=== PATIENT | female | born 1980 | race African-American/Black ===

== ENCOUNTER 2020-10-22 10:45 | Outpatient (REF) | payer OTHER, SELFPAY | END 2020-10-22 10:46 | disposition home or self-care (01) | LOC: HO.LNP 10:45 | PROVIDERS: Visit Provider Hospitalist | DX: R82.71 Bacteriuria (principal) | CPT/HCPCS: 87086 ==

== ENCOUNTER 2020-10-29 14:03 | Outpatient (REF) | payer OTHER, SELFPAY | END 2020-10-29 14:04 | disposition home or self-care (01) | LOC: HO.LNP 14:03 | PROVIDERS: Visit Provider Hospitalist | DX: Z00.00 Encounter for general adult medical examination without abnormal findings (principal); R82.71 Bacteriuria; Z13.220 Encounter for screening for lipoid disorders; Z13.29 Encounter for screening for other suspected endocrine disorder; Z23 Encounter for immunization | CPT/HCPCS: 87086 ==

== ENCOUNTER 2021-12-17 08:35 | Outpatient (REF) | payer OTHER, SELFPAY ==
[2021-12-17 10:49] LABS: Hematocrit 37.1 % (37.0-47.0); Hemoglobin 11.7 g/dl (12.0-16.0); Mean Corpuscular HGB Conc 31.5 g/dl (31.0-35.0); Mean Corpuscular Hemoglobin 25.4 pg (27.0-33.0); Mean Corpuscular Volume 80.7 fL (80.0-98.0); Mean Platelet Volume 11.8 fL (9.4-12.3); Platelet Count 217 X10*3/uL (160-400); Red Cell Distribution Width 13.8 % (11.0-16.0); White Blood Count 7.7 X10*3/uL (4.8-10.8)
[2021-12-17 11:06] LABS: Alanine Aminotransferase 15 U/L (0-31); Albumin Level 4.3 g/dL (3.5-5.0); Alkaline Phosphatase 92 U/L (39-117); Anion Gap 13 (12-20); Aspartate Amino Transferase 14 U/L (5-31); Bilirubin Total 0.3 mg/dL (0.0-1.0); Blood Urea Nitrogen 10 mg/dL (9-16); Calcium 9.9 mg/dL (8.4-10.2); Carbon Dioxide 23 mmol/L (22-29); Chloride 107 mmol/L (96-108); Cholesterol 196 mg/dL; Estimated Glomerular Filt Rate > 60; Glucose Fasting 100 mg/dL (60-99); HDL Cholesterol 50 mg/dL; Iron 44 mcg/dL (30-160); LDL Cholesterol Calculated 127 mg/dl; Percent Iron Saturation 12 % (15-50); Potassium 4.2 mmol/L (3.3-5.1); Sodium 139 mmol/L (135-145); Total Iron Binding Capacity 380 mcg/dL (228-428); Triglycerides 95 mg/dL; Unsaturated Iron Binding 336 ug/dL
[2021-12-17 11:27] LABS: TSH reflex Free T4 0.59 uIU/mL (0.32-4.0)
== END 2021-12-17 08:36 | disposition home or self-care (01) ==
LOC: HO.WFDLDS 08:35
PROVIDERS: Visit Provider Hospitalist
DX: Z00.00 Encounter for general adult medical examination without abnormal findings (principal); D64.9 Anemia, unspecified
CPT/HCPCS: 36415; 80053; 80061; 83540; 84443; 85027

== ENCOUNTER 2022-11-15 12:51 | Outpatient (REF) | payer OTHER, SELFPAY ==
[2022-11-15 14:23] LABS: Hematocrit 34.4 % (37.0-47.0); Hemoglobin 10.9 g/dl (12.0-16.0); Mean Corpuscular HGB Conc 31.7 g/dl (31.0-35.0); Mean Corpuscular Hemoglobin 25.2 pg (27.0-33.0); Mean Corpuscular Volume 79.6 fL (80.0-98.0); Mean Platelet Volume 12.5 fL (9.4-12.3); Platelet Count 228 X10*3/uL (160-400); Red Blood Count 4.32 X10*6/uL (4.20-5.50); Red Cell Distribution Width 13.8 % (11.0-16.0); White Blood Count 9.6 X10*3/uL (4.8-10.8)
[2022-11-15 15:02] LABS: Alanine Aminotransferase 16 U/L (0-31); Alkaline Phosphatase 86 U/L (39-117); Anion Gap 10 (12-20); Aspartate Amino Transferase 16 U/L (5-31); Bilirubin Total 0.4 mg/dL (0.0-1.0); Blood Urea Nitrogen 8 mg/dL (9-16); Calcium 9.2 mg/dL (8.4-10.2); Carbon Dioxide 25 mmol/L (22-29); Chloride 107 mmol/L (96-108); Cholesterol 220 mg/dL; Estimated Glomerular Filt Rate > 60; Glucose Fasting 82 mg/dL (60-99); HDL Cholesterol 54 mg/dL; LDL Cholesterol Calculated 156 mg/dl; Potassium 4.1 mmol/L (3.3-5.1); Sodium 138 mmol/L (135-145); TSH reflex Free T4 0.67 uIU/mL (0.32-4.0); Total Protein 6.5 g/dL (6.5-8.0); Triglycerides 54 mg/dL
== END 2022-11-15 12:52 | disposition home or self-care (01) ==
LOC: HO.WFDLDS 12:51
PROVIDERS: Visit Provider Hospitalist
DX: Z00.00 Encounter for general adult medical examination without abnormal findings (principal)
CPT/HCPCS: 36415; 80053; 80061; 84443; 85027

== ENCOUNTER 2022-12-28 09:29 | Outpatient (REF) | payer OTHER, SELFPAY ==
[2022-12-28 10:43] LABS: Hematocrit 31.8 % (37.0-47.0); Mean Corpuscular HGB Conc 31.4 g/dl (31.0-35.0); Mean Corpuscular Hemoglobin 24.9 pg (27.0-33.0); Mean Corpuscular Volume 79.1 fL (80.0-98.0); Mean Platelet Volume 11.4 fL (9.4-12.3); Platelet Count 220 X10*3/uL (160-400); Red Blood Count 4.02 X10*6/uL (4.20-5.50); Red Cell Distribution Width 13.9 % (11.0-16.0); White Blood Count 5.2 X10*3/uL (4.8-10.8)
[2022-12-28 11:42] LABS: Folate 11.2 ng/mL (> or = 4.0); Vitamin B12 705 pg/mL (200-900)
[2023-01-01 19:18] LABS: Vitamin C 0.6 mg/dL (0.3-2.7)
== END 2022-12-28 09:30 | disposition home or self-care (01) ==
LOC: HO.WFDLDS 09:29
PROVIDERS: Visit Provider Hospitalist
DX: D64.9 Anemia, unspecified (principal)
CPT/HCPCS: 36415; 82180; 82607; 82746; 85027

== ENCOUNTER 2023-01-13 11:07 | Outpatient (REF) | payer OTHER, SELFPAY ==
[2023-01-13 14:14] LABS: Hematocrit 35.7 % (37.0-47.0); Hemoglobin 11.2 g/dl (12.0-16.0); Mean Corpuscular HGB Conc 31.4 g/dl (31.0-35.0); Mean Corpuscular Volume 79.7 fL (80.0-98.0); Mean Platelet Volume 12.4 fL (9.4-12.3); Platelet Count 260 X10*3/uL (160-400); Red Blood Count 4.48 X10*6/uL (4.20-5.50); Red Cell Distribution Width 14.3 % (11.0-16.0); White Blood Count 9.7 X10*3/uL (4.8-10.8)
== END 2023-01-13 11:08 | disposition home or self-care (01) ==
LOC: HO.WFDLDS 11:07
PROVIDERS: Visit Provider Hospitalist
DX: D64.9 Anemia, unspecified (principal)
CPT/HCPCS: 36415; 85027

== ENCOUNTER 2023-10-21 10:02 | Outpatient (AMB) | payer OTHER, SELFPAY ==
--- NOTE | 2023-10-21 10:06 | MHC.PC.OV ---
Vital Signs 10/21/23 10:11 Height 5 ft 6 in Weight 220 lb 8 oz BMI 35.6 BP 134/78 Blood Pressure Location Rt brachial Position Sitting Pulse 79 Pulse Source Pulse Oximeter Pulse Oximetry (%) 99 Oxygen Delivery Method Room Air Intake Visit Reasons: transfer care from [facility] Note: Patient is here today transfer of care SV. Externship forms needs to be filled out. Behavioral Technician Required: No Chief Revenue Officer: Not Required per policy Accompanied by: Self / Same As Patient Allergies No Known Allergies Allergy (Verified 10/21/23 10:38) Tobacco use date assessed: 10/21/23 Dental Screening Dental Screen Date: 10/21/23 Did you have a dental visit in the last 12 months?: No Did you have a dental problem in the last 6 months where you did not have access to dental care?: No Was dental information given to patient?: No HPI HPI Comments History of Present Illness Details 42 y/o F with Iron Def anemia Health Maintenance: Immunizations: Needs titers drawn for work, ordered today. Due for Tdap and Flu. Will get done today in office Mammogram - reports done in the last year at [facility] - record requested Pap: 2021 reported as normal unsure where. 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 Fillings fell out. > Needs to find one but cannot. Please provide a list via NN referral placed today. Diet normal Sleep/Mood good Was taking Iron supplement for Iron def anemia; admits has not taken in a while. Record review shows general noncompliance. Offers no c/o overt bleeding or sx of anemia. [facility] Medical History Anemia Surgical History No pertinent past surgical history Family History Maternal Aunt Breast cancer Mother High blood pressure Prediabetes Social History Household Members Other:: son Housing: Apartment Alcohol intake: never Patient Tobacco Use Status: Never used Tobacco e-Cigarette/Vaping Use: Never Used Second Hand Smoke Exposure: No service: No Current occupational status: employed and student Cognitive needs: No Hearing needs: No Vision needs: No Questionnaire PHQ-9 Over the last 2 weeks, how often have you been bothered by any of the following problems? 1. Little interest or pleasure in doing things: not at all 2. Feeling down, depressed, or hopeless: not at all 3. Trouble falling or staying asleep, or sleeping too much: not at all 4. Feeling tired or having little energy: not at all 5. Poor appetite or overeating: not at all 6. Feeling bad about yourself - or that you are a failure or have let yourself or your family down: not at all 7. Trouble concentrating on things, such as reading the newspaper or watching television: not at all 8. Moving or speaking so slowly that other people could have noticed. Or the opposite - being so fidgety or restless that you have been moving around a lot more than usual: not at all 9. Thoughts that you would be better off or of hurting yourself in some way: not at all Total score: 0 Depression Screening Interpretation: Negative Depression Screening Done: Yes 88319 - PHQ-9 Billing: Yes Source: Developed by Drs. Nathan Luke, Sonal Hernandez, Iam Hernandez and colleagues, with an educational leda from [employer]. Thrive Questionnaire Date Thrive assessed: 10/21/23 I am a: Patient What is your living situation today?: I have a steady place to live Within the past 12 months, did the food you bought not last and you didn't have the money to get more?: Never true Within the past 12 months, did you worry whether your food would run out before you got money to buy more?: Never true Do you have trouble paying for medicines?: No Do you have trouble getting transportation to medical appointments?: No Do you have trouble paying your heating and electricity bill?: No Do you have trouble taking care of your child, family member or friend?: No Do you have trouble with day-to-day activities such as bathing, preparing meals, shopping, managing finances, etc.?: No Are you currently unemployed and looking for a job?: No Are you interested in more education?: No Please select the resources that you would like help with: None Currently or been in a relationship where the following occur: no concerns reported THRIVE Score: 0 AUDIT C Alcohol Use Questionnaire (AUDIT-C) 1. How often do you have a drink containing alcohol?: Never Total Score: 0 Score Reviewed/Action Taken: No WAYLON-7 AMB Questionnaire WAYLON-7 Date WAYLON - 7 assessed: 10/21/23 Feeling nervous, anxious, or on edge: 0 = Not at all Not being able to stop or control worryin = Not at all Worrying too much about different things: 0 = Not at all Trouble relaxin = Not at all Being so restless that it is hard to sit still: 0 = Not at all Becoming easily annoyed or irritable: 0 = Not at all Feeling afraid as if something awful might happen: 0 = Not at all Total WAYLON-7 score (0-4 normal; 5-9 mild; 10-14 moderate; 15-21 severe): 0 Source: Developed by Drs. Nathan Luke, Sonal Hernandez, Iam Hernandez and colleagues, with an educational leda from [employer]. WAYLON-7 Assessment Billing WAYLON-7 Assessment Tool: WAYLON-7 Assessment 95800 Review of Systems Const Details: Constitutional: [Denies fever. Skin: Denies rash. Eye: Denies eye pain. ENMT: Denies sore throat and nasal congestion. Respiratory: Denies shortness of breath and cough. Gastrointestinal: Denies nausea, vomiting or abdominal pain. Cardiovascular: Denies chest pain and syncope. Genitourinary: Denies dysuria. Musculoskeletal: Denies back pain and extremity pain. Neurologic: Denies headaches, confusion, and weakness. Psychiatric: Denies suicidal thoughts and substance abuse. Allergy/ Immunologic: Denies impaired immunity. Physical exam (Primary Care) Vital Signs: Last Vital Signs Pulse 79 10/21/23 10:11 BP 134/78 10/21/23 10:11 Pulse Ox 99 10/21/23 10:11 Oxygen Delivery Method Room Air 10/21/23 10:11 BMI result Body Mass Index 35.6 BMI Assessment/Plan discussion: High Tobacco/Smoking Status: Tobacco use Status Tobacco use date assessed 10/21/23 10/21/23 10:17 Patient Tobacco Use Status Never used Tobacco 10/21/23 10:17 e-Cigarette/Vaping Use Never Used 10/21/23 10:17 PHQ-9: PHQ-9 Score PHQ-9: Total score 0 10/21/23 11:39 Depression Screening Interpretation: Negative Thrive Assessment: Date of Thrive Assessment Date Thrive assessed 10/21/23 10/21/23 10:17 Currently or been in a relationship where the following occur: no concerns reported Const Other: General: Well developed, well nourished, in no acute distress. Appears stated age. Head: Normocephalic, atraumatic. Eyes: Pupils are equal, round and reactive to light and accommodation. Conjunctivae are clear. Vision grossly normal. Ears: TMs clear AU, EACS WNL Nose: Patent, without discharge. Mouth: There are no ulcers or lesions noted. No inflammation, no post nasal drip, no plaques nor exudates. Neck: Supple, no adenopathy or thyromegaly. Lungs: Clear to auscultation bilaterally. No rales, rhonchi or wheeze noted. Good air flow in all valente. Heart: Regular rate and rhythm. No murmurs, click, rubs or gallops are noted. Abdomen: Bowel sounds present in all quadrants. The abdomen is soft, nontender, with no masses or organomegaly noted. No hernias are noted. Musculoskeletal: Joints are nontender, without swelling, redness, or effusions. Range of motion is observed to be normal. Pulses: Peripheral pulses are equal and palpable bilaterally. Extremities: No clubbing, cyanosis is noted. Trace nonpitting edema bilat. Neurologic: Gait and station normal. Cranial Nerves 2-12 intact. Motor strength grossly symmetrical and intact. No sensory loss. Balance normal. Skin: No rashes, ulcers, or lesions noted. Turgor is good. Skin color is good. Hair and nails are without abnormalities. Psych: Normal eye contact, affect and mood appropriate, and normal interactions. Patient is alert and appropriate to context. Office Procedures Flu Questionnaire Does the patient have a severe egg allergy?: No Does the patient have severe life threatening allergies?: No Does the patient have a fever or illness today?: No Has the patient ever had Guillain-Delray Syndrome?: No Has the patient ever had any past reaction to a flu shot?: No Immunizations flu vacc [id number] 6mos up(PF) 60 mcg(15 mcgx4)/0.5 mL IM syringe Performing Provider: KRISSY Barth Performing Location: [facility] Administered by: Krista Yates CMA on 10/21/23 11:43 Dose Route Admin Location Dispensed Lot Number Expiration Date ND Supervisor [employer] 0.5 mL IM Right Deltoid 0.5 mL [id number] 03/18/24 [id number] [email or web address] VIS Given Date VIS Provided VIS Publication Date 10/21/23 Single Vaccine 21 Eligibility Eligibility Date Funding Source Not VFC Eligible 10/21/23 Private Boostrix Tdap 2.5 Lf unit-8 mcg-5 Lf/0.5 mL intramuscular syringe Performing Provider: KRISSY Barth Performing Location: [facility] Administered by: Krista Yates CMA on 10/21/23 11:47 Dose Route Admin Location Dispensed Lot Number Expiration Date ND Supervisor [employer] 0.5 mL IM Left Deltoid 0.5 mL [id number] 08/24/25 [id number] [employer] VIS Given Date VIS Provided VIS Publication Date 10/21/23 Single Vaccine 21 Eligibility Eligibility Date Funding Source Not VFC Eligible 10/21/23 Private Assessment and Plan Assessment & Plan (1) Normal physical exam: Code(s): Z00.00 - Encounter for general adult medical examination without abnormal findings (2) Anemia: Comment: Labs ordered today. Was taking iron supplement although not consistently. Full anemia workup has never taken place. Be that as it may review of records shows that her anemia is mild and was controlled well with sporadic use of p.o. iron. We will follow up with patient once labs are back to determine if she needs to continue p.o. iron supplement or not. Of note the labs are being done. Of time without iron supplementation. Code(s): D64.9 - Anemia, unspecified Qualifiers: Anemia type: iron deficiency Iron deficiency anemia type: unspecified iron deficiency Qualified Code(s): D50.9 - Iron deficiency anemia, unspecified (3) Laboratory exam ordered as part of routine general medical examination: Code(s): Z00.00 - Encounter for general adult medical examination without abnormal findings (4) Pre-employment drug testing: Code(s): Z02.1 - Encounter for pre-employment examination Plan: Paperwork required for pre-employment. Given to me today. We will complete once all the lab tests are back. I will phone patient is ready for pickup. (5) Immunity status testing: Code(s): Z01.84 - Encounter for antibody response examination (6) Edema: Code(s): R60.9 - Edema, unspecified Qualifiers: Edema type: unspecified Qualified Code(s): R60.9 - Edema, unspecified Orders: Orders MMR IgG Measles Mumps Rubella Today D64.9 - Anemia, unspecified, Z00.00 - Encounter for general adult medical examination without abnormal findings, Z01.84 - Encounter for antibody response examination, Z02.1 - Encounter for pre-employment examination Hepatitis B Profile Today D64.9 - Anemia, unspecified, Z00.00 - Encounter for general adult medical examination without abnormal findings, Z01.84 - Encounter for antibody response examination, Z02.1 - Encounter for pre-employment examination Varicella IgG Antibody Today D64.9 - Anemia, unspecified, Z00.00 - Encounter for general adult medical examination without abnormal findings, Z01.84 - Encounter for antibody response examination, Z02.1 - Encounter for pre-employment examination AMB 12 Panel Urine Drug Screen Today D64.9 - Anemia, unspecified, Z00.00 - Encounter for general adult medical examination without abnormal findings, Z01.84 - Encounter for antibody response examination, Z02.1 - Encounter for pre-employment examination, Z51.81 - Encounter for therapeutic drug level monitoring Comprehensive [place]. Panel Fast Today D64.9 - Anemia, unspecified, Z00.00 - Encounter for general adult medical examination without abnormal findings, Z01.84 - Encounter for antibody response examination, Z02.1 - Encounter for pre-employment examination Lipid Panel Today D64.9 - Anemia, unspecified, Z00.00 - Encounter for general adult medical examination without abnormal findings, Z01.84 - Encounter for antibody response examination, Z02.1 - Encounter for pre-employment examination Vitamin D 1,25 dihydroxy Today D64.9 - Anemia, unspecified, Z00.00 - Encounter for general adult medical examination without abnormal findings, Z01.84 - Encounter for antibody response examination, Z02.1 - Encounter for pre-employment examination Complete Blood Count no Diff Today D64.9 - Anemia, unspecified, Z00.00 - Encounter for general adult medical examination without abnormal findings, Z01.84 - Encounter for antibody response examination, Z02.1 - Encounter for pre-employment examination T Spot TB Today D64.9 - Anemia, unspecified, Z00.00 - Encounter for general adult medical examination without abnormal findings, Z01.84 - Encounter for antibody response examination, Z02.1 - Encounter for pre-employment examination TSH reflex Free T4 Today D64.9 - Anemia, unspecified, Z00.00 - Encounter for general adult medical examination without abnormal findings, Z01.84 - Encounter for antibody response examination, Z02.1 - Encounter for pre-employment examination IRON PROFILE Today D64.9 - Anemia, unspecified, Z00.00 - Encounter for general adult medical examination without abnormal findings, Z01.84 - Encounter for antibody response examination, Z02.1 - Encounter for pre-employment examination US arterial duplex LE BI Today R60.9 - Edema, unspecified TDaP Immunization Today Z23 - Encounter for immunization Influenza [id number] Immunization Today Z23 - Encounter for immunization Referrals Nurse Navigator Referral Z00.00 - Encounter for general adult medical examination without abnormal findings Coding Level of Care Code Est Pt Prev Care 40-64y(34937) Diagnoses Normal physical exam Z00.00 Iron deficiency anemia, unspecified iron deficiency anemia type D50.9 Anemia type: iron deficiency Iron deficiency anemia type: unspecified iron deficiency Laboratory exam ordered as part of routine general medical examination Z00.00 Pre-employment drug testing Z02.1 Immunity status testing Z01.84 Edema, unspecified type R60.9 Edema type: unspecified Additional Codes WAYLON-7 Assessment Billing - WAYLON-7 Assessment Tool: WAYLON-7 Assessment 14575 ([id number])
[2023-10-21 10:11] VITALS: BP 134/78; PULSE 79; O2SAT 99; BMI 35.6
== END 2023-10-21 11:16 | disposition home or self-care (01) ==
PROVIDERS: Visit Provider Nurse Practitioner Family
DX: D50.9 Iron deficiency anemia, unspecified (principal); R60.9 Edema, unspecified; Z23 Encounter for immunization
CPT/HCPCS: 90471; 90472; 90686; 90715; 99214

== ENCOUNTER 2023-10-21 11:22 | Outpatient (REF) | payer OTHER, SELFPAY ==
[2023-10-21 14:05] LABS: Hemoglobin 9.9 g/dl (12.0-16.0); Mean Corpuscular HGB Conc 30.9 g/dl (31.0-35.0); Mean Corpuscular Hemoglobin 22.4 pg (27.0-33.0); Mean Corpuscular Volume 72.6 fL (80.0-98.0); Mean Platelet Volume 11.7 fL (9.4-12.3); Platelet Count 239 X10*3/uL (160-400); Red Blood Count 4.41 X10*6/uL (4.20-5.50); Red Cell Distribution Width 15.2 % (11.0-16.0); White Blood Count 9.6 X10*3/uL (4.8-10.8)
[2023-10-21 14:44] LABS: Amphetamine Screen Urine Not Detected (Not Detect); Barbiturates, Urine Not Detected (Not Detect); Benzodiazepines Screen Urine Not Detected (Not Detect); Cannabinoid Screen Urine Not Detected (Not Detect); Cocaine Screen Urine Not Detected (Not Detect); Fentanyl, urine Not Detected (Not Detect); Opiate Screen Urine Not Detected (Not Detect); Phencyclidine Screen Urine Not Detected (Not Detect)
[2023-10-21 15:11] LABS: Alanine Aminotransferase 16 U/L (0-31); Albumin Level 4.2 g/dL (3.5-5.0); Alkaline Phosphatase 98 U/L (39-117); Anion Gap 12 (12-20); Aspartate Amino Transferase 16 U/L (5-31); Bilirubin Total 0.3 mg/dL (0.0-1.0); Blood Urea Nitrogen 9 mg/dL (9-16); Calcium 9.5 mg/dL (8.4-10.2); Carbon Dioxide 24 mmol/L (22-29); Chloride 107 mmol/L (96-108); Cholesterol 211 mg/dL (<200); Estimated Glomerular Filt Rate > 60; Glucose Fasting 90 mg/dL (60-99); HDL Cholesterol 59 mg/dL (>40); Iron 24 mcg/dL (30-160); LDL Cholesterol Calculated 141 mg/dL (<100); Percent Iron Saturation 6 % (15-50); Potassium 3.8 mmol/L (3.3-5.1); Sodium 139 mmol/L (135-145); TSH reflex Free T4 1.11 uIU/mL (0.32-4.0); Total Iron Binding Capacity 374 mcg/dL (228-428); Total Protein 7.4 g/dL (6.5-8.0); Triglycerides 59 mg/dL (<150); Unsaturated Iron Binding 350 ug/dL
[2023-10-22 04:18] LABS: HBS Num1 0.48 mIU/mL (0-7.99); HBc Num1 0.07 S/CO (0.00-0.79); HBsAGNum1 0.39 S/CO (0.00-0.99); Hepatitis B Core Antibody Nonreactive (Nonreactive); Hepatitis B Surface Antigen Negative (Negative); ~Hepatitis B Surface Antibody NONREACTIVE (Nonreactive)
[2023-10-24 15:03] LABS: TS Negative Control Passed; TS Panel A 0; TS Panel B 1; TS Positive Control Passed; TSpotTB Negative (Negative)
[2023-10-25 02:09] LABS: Rubella IgG Antibody 4.26 Index
[2023-10-25 14:48] LABS: VITAMIN D (1,25 OH) D3 49 pg/mL; Vit D (1,25-Dihydroxy) Total 49 pg/mL (18-72); Vitamin D (1,25 OH) D2 <8 pg/mL
== END 2023-10-21 11:23 | disposition home or self-care (01) ==
LOC: HO.WFDLDS 11:22
PROVIDERS: Visit Provider Nurse Practitioner Family
DX: Z02.1 Encounter for pre-employment examination (principal); Z13.21 Encounter for screening for nutritional disorder; Z11.1 Encounter for screening for respiratory tuberculosis; D64.9 Anemia, unspecified; E78.5 Hyperlipidemia, unspecified
CPT/HCPCS: 36415; 80053; 80061; 80307; 82652; 83540; 84443; 85027; 86481; 86704; 86706; 86735; 86762; 86765; 86787; 87340

== ENCOUNTER 2023-11-10 08:21 | Outpatient (REF) | payer OTHER, SELFPAY ==
--- NOTE | ~2023-11-10 | US_ITS ---
EXAMINATION: US VENOUS ULTRASOUND WITH DOPPLER LOWER EXTREMITY, BILATERAL CLINICAL INFORMATION: Edema COMPARISON: None available. TECHNIQUE: Ultrasound of the deep veins is performed from the hip to the calf with compression sonography and color and pulse Doppler assessment. Spectral analysis with color-flow imaging is performed. FINDINGS: RIGHT: There is normal venous compression and respiratory variation and augmented flow. The visualized common femoral vein, superficial femoral vein, profunda femoral vein, popliteal vein, and the trifurcation region shows no evidence of deep venous thrombosis. There is no significant popliteal fossa cyst. LEFT: There is normal venous compression and respiratory variation and augmented flow. The visualized common femoral vein, superficial femoral vein, profunda femoral vein, popliteal vein, and the trifurcation region shows no evidence of deep venous thrombosis. There is no significant popliteal fossa cyst. If the patient's symptoms persist, followup ultrasound in 5 days 7 days might be of value to exclude proximal propagation from a non-visualized calf vein. US/US venous duplex LE BI IMPRESSION: No DVT demonstrated in the bilateral lower extremity.
== END 2023-11-10 08:22 | disposition home or self-care (01) ==
LOC: HO.US 08:21
PROVIDERS: PCP Nurse Practitioner Family; Visit Provider Nurse Practitioner Family
DX: R60.0 Localized edema (principal)
CPT/HCPCS: 93970

== ENCOUNTER 2024-04-23 15:28 | Outpatient (AMB) | payer OTHER, SELFPAY ==
--- NOTE | 2024-04-23 15:32 | MHC.PC.OV ---
Vital Signs 04/23/24 15:34 Height 5 ft 6 in Weight 212 lb 8 oz BMI 34.3 BP 128/68 Blood Pressure Location Rt brachial Position Sitting Respiration 16 Pulse 74 Pulse Source Pulse Oximeter Pulse Oximetry (%) 98 Oxygen Delivery Method Room Air Intake Visit Reasons: Follow up Anemia and Hyperlipidemia Intake Note: Follow up. Was unable to get labs done. Newspaper Clipper Required: No Is last menstrual period known: Yes Last menstrual period: 04/21/24 Allergies atorvastatin Allergy (Mild, Verified 04/23/24 15:45) Rash Medication List - Last Reconciled 04/23/24 by Emiliana Bettencourt, PAPER TUBE CUTTER- atorvastatin 20 mg PO QPM ferrous fumarate 325 mg PO DAILY Tobacco use date assessed: 10/21/23 Dental Screening Dental Screen Date: 10/21/23 HPI HPI Comments History of Present Illness Details 43 y/o F with Iron Def anemia, obesity, hyperlipidemia Here today for routine follow up of her chronic conditions. Since last office visit she is taking her iron twice per day as directed without any GI side effects. She denies any overt bleeding, shortness of breath or chest pain. I started her on atorvastatin 20 mg at the last office visit due to her lipid profile, after taking for 1 month she developed an itchy rash on her neck. She did stop taking for some time and then restarted on it, the rash got worse. In regards to the swelling in her lower extremities, it remains the same, worse on the right side, worse on the end of the day. Improves in the mornin and with elevation. Exam Awake alert oriented, no acute distress Mild conjunctival pallor bilat Mucous membranes moist Regular rate and rhythm Lung sounds clear to auscultation bilat Trace nonpitting edema bilateral lower extremities, right greater than left Dermatitis anterior neck, worse on the right side, without secondary signs of infection Pleasant and cooperative Plan: Due for repeat labs which she will get done today, I have changed the fasting lipid profile to a direct LDL as she is nonfasting today. I have discontinue the atorvastatin and added this to her allergy profile Prednisone to help the drug-induced rash. Advised to liberally hydrate the skin but avoid topical steroids. If the rash does not improve or gets worse advised to contact me so that I can put a referral in to dermatology for further evaluation and treatment. If a cholesterol-lowering agent is needed, we will start Zetia. Continue iron supplements, refill has been sent to local pharmacy. Return to office in about 4 months with repeat labs done 1 week before, sooner as needed. Improving CBC and Iron profile; remains anemic. LDL pending. This note is constructed using voice recognition software. While every effort has been made to ensure accuracy in hog buyer, still errors may have been included Sometimes, these errors may affect the content or meaning of the given sentence . PFSH Medical History Anemia Surgical History No pertinent past surgical history Family History Maternal Aunt Breast cancer Mother High blood pressure Prediabetes Social History Household Members Other:: son Housing: Apartment Alcohol intake: never Patient Tobacco Use Status: Never used Tobacco e-Cigarette/Vaping Use: Never Used Second Hand Smoke Exposure: No service: No Current occupational status: employed and student Cognitive needs: No Hearing needs: No Vision needs: No Female Reproductive History Menstrual Date of last menstrual period: 04/21/24 Questionnaire Thrive Questionnaire Date Thrive assessed: 10/21/23 I am a: Patient What is your living situation today?: I have a steady place to live Within the past 12 months, did the food you bought not last and you didn't have the money to get more?: Sometimes True Within the past 12 months, did you worry whether your food would run out before you got money to buy more?: Sometimes True Do you have trouble paying for medicines?: No Do you have trouble getting transportation to medical appointments?: No Do you have trouble paying your heating and electricity bill?: No Do you have trouble taking care of your child, family member or friend?: No Do you have trouble with day-to-day activities such as bathing, preparing meals, shopping, managing finances, etc.?: No Are you currently unemployed and looking for a job?: No Are you interested in more education?: No Please select the resources that you would like help with: Food Currently or been in a relationship where the following occur: No concerns reported THRIVE Score: 2 WAYLON-7 AMB Questionnaire WAYLON-7 Date WAYLON - 7 assessed: 10/21/23 Source: Developed by Drs. Nathan Luke, Sonal Hernandez, Iam Hernandez and colleagues, with an educational leda from [employer]. Physical exam (Primary Care) Vital Signs: Last Vital Signs Pulse 74 04/23/24 15:34 Resp 16 04/23/24 15:34 BP 128/68 04/23/24 15:34 Pulse Ox 98 04/23/24 15:34 Oxygen Delivery Method Room Air 04/23/24 15:34 BMI result Body Mass Index 34.3 BMI Assessment/Plan discussion: High BMI High, discussed plan: lifestyle Tobacco/Smoking Status: Tobacco use Status Tobacco use date assessed 10/21/23 04/23/24 15:33 Patient Tobacco Use Status Never used Tobacco 04/23/24 15:33 e-Cigarette/Vaping Use Never Used 04/23/24 15:33 Thrive Assessment: Date of Thrive Assessment Date Thrive assessed 10/21/23 04/23/24 15:33 Currently or been in a relationship where the following occur: No concerns reported Assessment and Plan Assessment & Plan (1) Hyperlipidemia: Code(s): E78.5 - Hyperlipidemia, unspecified Qualifiers: Hyperlipidemia type: mixed hyperlipidemia Qualified Code(s): E78.2 - Mixed hyperlipidemia (2) Edema: Code(s): R60.9 - Edema, unspecified Qualifiers: Edema type: unspecified Qualified Code(s): R60.9 - Edema, unspecified (3) Anemia: Code(s): D64.9 - Anemia, unspecified Qualifiers: Anemia type: iron deficiency Iron deficiency anemia type: unspecified iron deficiency Qualified Code(s): D50.9 - Iron deficiency anemia, unspecified (4) Drug-induced skin rash: Code(s): L27.0 - Generalized skin eruption due to drugs and medicaments taken internally (5) Allergy to statin medication: Code(s): Z88.8 - Allergy status to other drugs, medicaments and biological substances (6) Obesity (BMI 30.0-34.9): Code(s): E66.9 - Obesity, unspecified Orders: Orders Complete Blood Count no Diff 08/12/24 D50.9 - Iron deficiency anemia, unspecified, E78.2 - Mixed hyperlipidemia Comprehensive [place]. Panel Fast 08/12/24 D50.9 - Iron deficiency anemia, unspecified, E78.2 - Mixed hyperlipidemia LDL Cholesterol Direct 04/23/24 E78.5 - Hyperlipidemia, unspecified Lipid Panel 08/12/24 D50.9 - Iron deficiency anemia, unspecified, E78.2 - Mixed hyperlipidemia IRON PROFILE 08/12/24 D50.9 - Iron deficiency anemia, unspecified, E78.2 - Mixed hyperlipidemia Medications: New prednisone 50 mg PO DAILY 5 days 5 tabs 0RF Changed From ferrous fumarate 325 mg PO DAILY 90 tabs 1RF D64.9 - Anemia, unspecified To ferrous fumarate 325 mg PO BID 90 days 180 tabs 2RF D64.9 - Anemia, unspecified Discontinued atorvastatin Discontinued Reason: Doctor's Order 20 mg PO QPM 90 tabs 1RF Coding Level of Care Code Est Pt Level 4 (94123) Diagnoses Mixed hyperlipidemia E78.2 Hyperlipidemia type: mixed hyperlipidemia Edema, unspecified type R60.9 Edema type: unspecified Iron deficiency anemia, unspecified iron deficiency anemia type D50.9 Anemia type: iron deficiency Iron deficiency anemia type: unspecified iron deficiency Drug-induced skin rash L27.0 Allergy to statin medication Z88.8 Obesity (BMI 30.0-34.9) E66.9
[2024-04-23 15:34] VITALS: BP 128/68; PULSE 74; RESP 16; O2SAT 98; BMI 34.3
== END 2024-04-23 15:54 | disposition home or self-care (01) ==
PROVIDERS: Visit Provider Nurse Practitioner Family
DX: E78.2 Mixed hyperlipidemia (principal); R60.9 Edema, unspecified; Z88.8 Allergy status to other drugs, medicaments and biological substances; Z68.34 Body mass index [BMI] 34.0-34.9, adult; E66.9 Obesity, unspecified; D50.9 Iron deficiency anemia, unspecified; L27.0 Generalized skin eruption due to drugs and medicaments taken internally
CPT/HCPCS: 99214

== ENCOUNTER 2024-04-23 15:59 | Outpatient (REF) | payer OTHER, SELFPAY ==
[2024-04-23 17:53] LABS: Hematocrit 31.9 % (37.0-47.0); Mean Corpuscular HGB Conc 31.3 g/dl (31.0-35.0); Mean Corpuscular Hemoglobin 23.8 pg (27.0-33.0); Mean Corpuscular Volume 75.8 fL (80.0-98.0); Mean Platelet Volume 11.7 fL (9.4-12.3); Platelet Count 281 X10*3/uL (160-400); Red Blood Count 4.21 X10*6/uL (4.20-5.50); White Blood Count 9.8 X10*3/uL (4.8-10.8)
[2024-04-23 17:55] LABS: PLT ABN DIST 1
[2024-04-23 18:12] LABS: Iron 32 mcg/dL (30-160); Percent Iron Saturation 10 % (15-50); Total Iron Binding Capacity 306 mcg/dL (228-428); Unsaturated Iron Binding 274 ug/dL
[2024-04-24 13:43] LABS: LDL Cholesterol Direct 87 mg/dL (<100)
== END 2024-04-23 16:00 | disposition home or self-care (01) ==
LOC: HO.WFDLDS 15:59
PROVIDERS: Visit Provider Nurse Practitioner Family
DX: E78.5 Hyperlipidemia, unspecified (principal); D50.9 Iron deficiency anemia, unspecified
CPT/HCPCS: 36415; 83540; 83721; 85027

== ENCOUNTER 2024-07-09 13:38 | Outpatient (AMB) | payer OTHER, SELFPAY ==
--- NOTE | 2024-07-09 13:41 | A.OFFPC_ITS ---
Vital Signs 07/09/24 13:44 Height 5 ft 6 in Weight 217 lb BMI 35.0 BP 134/76 Blood Pressure Location Lt brachial Position Sitting Respiration 14 Pulse 81 Pulse Source Pulse Oximeter Pulse Oximetry (%) 97 Oxygen Delivery Method Room Air Intake Visit Reasons: same day visit sick Intake Note: Patient complaining of face itching and swollen face since tuesday Allergies atorvastatin Allergy (Mild, Verified 07/09/24 13:52) Rash Medication List - Last Reconciled 07/09/24 by KRISSY Barth ferrous fumarate 325 mg PO BID 90 days Tobacco use date assessed: 10/21/23 Dental Screening Dental Screen Date: 10/21/23 HPI HPI Comments History of Present Illness Details 43-year-old female here today with chief complaints of swelling and itching to her face that started on Tuesday. Reports that she was in her normal state of health, got her hair done and shortly after developed the itching of her face associated with swelling. She denies any known changes to the chemicals or products used to do her hair. She applied vitamin-E to her face without effect. The itching extended down to her neck on the anterior aspect. She denies any known allergen exposures, no trouble breathing, no trouble swallowing. Denies any new medications, supplements, food, etc. Exam Awake alert oriented, no acute distress Face edematous generally speaking without periorbital edema, no mucous membrane involvement, mucous membranes are moist, pharynx is clear, cheeks are mildly pink and warm to the touch, she does have 2 superficial skin tears on bilat cheeks The skin to her neck is dark with secondary excoriations without infection speaking in full sentences, lung sounds are clear to auscultation bilat regular rate and rhythm, Plan Allergic reaction, unknown cause. Steroid taper, hydroxyzine prn itch discouraged Vit E Do not change any home products such as lotions, laundry detergent, etc. Consider allergy referral in the future ED education provided This note is constructed using voice recognition software. While every effort has been made to ensure accuracy in cigar head stringer, still errors may have been included Sometimes, these errors may affect the content or meaning of the given sentence . 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 1. Little interest or pleasure in doing things: not at all 2. Feeling down, depressed, or hopeless: not at all 3. Trouble falling or staying asleep, or sleeping too much: several days 4. Feeling tired or having little energy: not at all 5. Poor appetite or overeating: not at all 6. Feeling bad about yourself - or that you are a failure or have let yourself or your family down: not at all 7. Trouble concentrating on things, such as reading the newspaper or watching television: not at all 8. Moving or speaking so slowly that other people could have noticed. Or the opposite - being so fidgety or restless that you have been moving around a lot more than usual: not at all 9. Thoughts that you would be better off or of hurting yourself in some way: not at all Total score: 1 20375 - PHQ-9 Billing: Yes Source: Developed by Drs. Nathan Luke, Sonal Hernandez, Iam Hernandez and colleagues, with an educational leda from [employer]. Thrive Questionnaire Date Thrive assessed: 07/09/24 I am a: Patient What is your living situation today?: I have a steady place to live Within the past 12 months, did the food you bought not last and you didn't have the money to get more?: Never true Within the past 12 months, did you worry whether your food would run out before you got money to buy more?: Sometimes True Do you have trouble paying for medicines?: No Do you have trouble getting transportation to medical appointments?: No Do you have trouble paying your heating and electricity bill?: No Do you have trouble taking care of your child, family member or friend?: No Do you have trouble with day-to-day activities such as bathing, preparing meals, shopping, managing finances, etc.?: No Are you currently unemployed and looking for a job?: No Are you interested in more education?: No Please select the resources that you would like help with: None Currently or been in a relationship where the following occur: No concerns reported THRIVE Score: 1 AUDIT C Alcohol Use Questionnaire (AUDIT-C) 1. How often do you have a drink containing alcohol?: Never Total Score: 0 WAYLON-7 AMB Questionnaire WAYLON-7 Date WAYLON - 7 assessed: 07/09/24 Feeling nervous, anxious, or on edge: 0 = Not at all Not being able to stop or control worryin = Not at all Worrying too much about different things: 0 = Not at all Trouble relaxin = Not at all Being so restless that it is hard to sit still: 0 = Not at all Becoming easily annoyed or irritable: 0 = Not at all Feeling afraid as if something awful might happen: 0 = Not at all Total WAYLON-7 score (0-4 normal; 5-9 mild; 10-14 moderate; 15-21 severe): 0 Source: Developed by Drs. Nathan Luke, Sonal Hernandez, Iam Hernandez and colleagues, with an educational leda from [employer]. WAYLON-7 Assessment Billing WAYLON-7 Assessment Tool: WAYLON-7 Assessment 87238 Physical exam (Primary Care) Vital Signs: Last Vital Signs Pulse 81 07/09/24 13:44 Resp 14 07/09/24 13:44 BP 134/76 07/09/24 13:44 Pulse Ox 97 07/09/24 13:44 Oxygen Delivery Method Room Air 07/09/24 13:44 BMI result Body Mass Index 35.0 Tobacco/Smoking Status: Tobacco use Status Tobacco use date assessed 10/21/23 07/09/24 13:43 Patient Tobacco Use Status Never used Tobacco 07/09/24 13:43 e-Cigarette/Vaping Use Never Used 07/09/24 13:43 PHQ-9: PHQ-9 Score PHQ-9: Total score 1 07/09/24 13:50 Thrive Assessment: Date of Thrive Assessment Date Thrive assessed 07/09/24 07/09/24 13:46 Currently or been in a relationship where the following occur: No concerns reported Coding Level of Care Code Est Pt Level 3 (08027) Complex EM visit Add On G2211 Diagnoses Swelling of face R22.0 Allergic reaction, initial encounter T78.40XA Encounter type: initial encounter Additional Codes WAYLON-7 Assessment Billing - WAYLON-7 Assessment Tool: WAYLON-7 Assessment 95791 ([id number]) Assessment & Plan Assessment & Plan (1) Swelling of face: Code(s): R22.0 - Localized swelling, mass and lump, head Plan: . (2) Allergic reaction: Code(s): T78.40XA - Allergy, unspecified, initial encounter Qualifiers: Encounter type: initial encounter Qualified Code(s): T78.40XA - Allergy, unspecified, initial encounter Plan: . Plan . Medications: New prednisone 5 tabs x 2 days, 4 tabs x 2 days, 3 tabs x 2 days, 2 tabs x 2 days, 1 tab x 2 days and then STOP. 10 mg PO DIRECTED 30 tabs 0RF 10 days hydroxyzine HCl 25 mg PO TID PRN 30 tabs 0RF itching
[2024-07-09 13:44] VITALS: BP 134/76; PULSE 81; RESP 14; O2SAT 97; BMI 35.0
== END 2024-07-09 16:54 | disposition home or self-care (01) ==
PROVIDERS: PCP Nurse Practitioner Family; Visit Provider Nurse Practitioner Family
DX: R22.0 Localized swelling, mass and lump, head (principal); T78.40XA Allergy, unspecified, initial encounter

== ENCOUNTER → 2024-07-09 13:38 | Outpatient (BNVA) | payer OTHER, SELFPAY | PROVIDERS: PCP Nurse Practitioner Family; Visit Provider Nurse Practitioner Family | DX: R22.0 Localized swelling, mass and lump, head (principal); T78.40XA Allergy, unspecified, initial encounter | CPT/HCPCS: 96127 ==

== ENCOUNTER 2024-08-20 13:47 | Outpatient (AMB) | payer OTHER, SELFPAY ==
--- NOTE | 2024-08-20 13:48 | A.OFFPC_ITS ---
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 Taking iron as directed, misses doses some times. Feels dizzy on those days. No GI side effects. Denies overt bleeding. Denies shortness and chest pain. Flu shot UTD She fully recovered from the rash and allergic reaction that she suffered. In regards to her hyperlipidemia, she was allergic to statins. She has been without medication. 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 Has found this to be helpful. Exam Awake alert oriented, no acute distress Mild conjunctival pallor bilat Mucous membranes moist Regular rate and rhythm Lung sounds clear to auscultation bilat Trace nonpitting edema bilateral lower extremities, right greater than left Pleasant and cooperative Plan Get labs today before leaving - results pending @ close of note. Cont Nutrition counseling through employer. Does not want to take meds for cholesterol, would prefer lifestyle mods. Cont Iron Return to office in October for complete physical exam, sooner as needed This note is constructed using voice recognition software. While every effort has been made to ensure accuracy in journeyman sheet metal worker, still errors may have been included Sometimes, these errors may affect the content or meaning of the given sentence . Total time spent caring for the patient today was 30 minutes. This includes time spent before the visit reviewing the chart, time spent during the visit, and time spent after the visit on documentation PFSH Medical History Anemia Surgical History No pertinent past surgical history Family History Maternal Aunt Breast cancer Mother High blood pressure Prediabetes Social History Household Members Other:: son Housing: Apartment Alcohol intake: never Patient Tobacco Use Status: Never used Tobacco e-Cigarette/Vaping Use: Never Used Second Hand Smoke Exposure: No service: No Current occupational status: employed and student Cognitive needs: No Hearing needs: No Vision needs: No Questionnaire PHQ-9 Over the last 2 weeks, how often have you been bothered by any of the following problems? 96437 - PHQ-9 Billing: Patient declined-do not bill Source: Developed by Drs. Nathan Luke, Sonal Hernandez, Iam Hernandez and colleagues, with an educational leda from [employer]. Thrive Questionnaire Date Thrive assessed: 08/20/24 I am a: Patient What is your living situation today?: I have a steady place to live Within the past 12 months, did the food you bought not last and you didn't have the money to get more?: Never true Within the past 12 months, did you worry whether your food would run out before you got money to buy more?: Sometimes True Do you have trouble paying for medicines?: No Do you have trouble getting transportation to medical appointments?: No Do you have trouble paying your heating and electricity bill?: No Do you have trouble taking care of your child, family member or friend?: No Do you have trouble with day-to-day activities such as bathing, preparing meals, shopping, managing finances, etc.?: No Are you currently unemployed and looking for a job?: No Are you interested in more education?: No Please select the resources that you would like help with: None Currently or been in a relationship where the following occur: No concerns reported THRIVE Score: 1 WAYLON-7 AMB Questionnaire WAYLON-7 Date WAYLON - 7 assessed: 07/09/24 Source: Developed by Drs. Nathan Luke, Sonal Hernandez, Iam Hernandez and colleagues, with an educational leda from [employer] [place]. Physical exam (Primary Care) Vital Signs: Last Vital Signs Pulse 89 08/20/24 13:51 Resp 14 08/20/24 13:51 BP 142/78 H 08/20/24 13:51 Pulse Ox 98 08/20/24 13:51 Oxygen Delivery Method Room Air 08/20/24 13:51 BMI result Body Mass Index 35.0 Tobacco/Smoking Status: Tobacco use Status Tobacco use date assessed 10/21/23 08/20/24 13:53 Patient Tobacco Use Status Never used Tobacco 08/20/24 13:53 e-Cigarette/Vaping Use Never Used 08/20/24 13:53 Thrive Assessment: Date of Thrive Assessment Date Thrive assessed 08/20/24 08/20/24 13:53 Currently or been in a relationship where the following occur: No concerns reported Coding Level of Care Code Est Pt Level 4 (30113) Complex EM visit Add On G2211 Diagnoses Other iron deficiency anemia D50.8 Iron deficiency anemia type: other iron deficiency Allergy to statin medication Z88.8 Mixed hyperlipidemia E78.2 Hyperlipidemia type: mixed hyperlipidemia Assessment & Plan Assessment & Plan (1) Iron deficiency anemia: Code(s): D50.9 - Iron deficiency anemia, unspecified Category: Medical Qualifiers: Iron deficiency anemia type: other iron deficiency Qualified Code(s): D50.8 - Other iron deficiency anemias (2) Allergy to statin medication: Code(s): Z88.8 - Allergy status to other drugs, medicaments and biological substances Category: Medical (3) Hyperlipidemia: Code(s): E78.5 - Hyperlipidemia, unspecified Category: Medical Qualifiers: Hyperlipidemia type: mixed hyperlipidemia Qualified Code(s): E78.2 - Mixed hyperlipidemia Plan . Orders: Orders Comprehensive Met. Panel Today D50.9 - Iron deficiency anemia, unspecified
[2024-08-20 13:51] VITALS: BP 142/78; PULSE 89; RESP 14; O2SAT 98; BMI 35.0
== END 2024-08-20 14:09 | disposition home or self-care (01) ==
PROVIDERS: PCP Nurse Practitioner Family; Visit Provider Nurse Practitioner Family
DX: D50.8 Other iron deficiency anemias (principal); Z88.8 Allergy status to other drugs, medicaments and biological substances; E78.2 Mixed hyperlipidemia

== ENCOUNTER → 2024-08-20 13:47 | Outpatient (BNVA) | payer OTHER, SELFPAY | PROVIDERS: PCP Nurse Practitioner Family; Visit Provider Nurse Practitioner Family ==

== ENCOUNTER 2024-08-20 14:05 | Outpatient (REF) | payer OTHER, SELFPAY ==
[2024-08-20 17:56] LABS: Hematocrit 34.6 % (37.0-47.0); Mean Corpuscular HGB Conc 31.8 g/dl (31.0-35.0); Mean Corpuscular Hemoglobin 25.5 pg (27.0-33.0); Mean Corpuscular Volume 80.3 fL (80.0-98.0); Mean Platelet Volume 11.4 fL (9.4-12.3); Platelet Count 247 X10*3/uL (160-400); Red Blood Count 4.31 X10*6/uL (4.20-5.50); Red Cell Distribution Width 14.4 % (11.0-16.0); White Blood Count 7.6 X10*3/uL (4.8-10.8)
[2024-08-20 18:14] LABS: Alanine Aminotransferase 19 U/L (0-31); Alkaline Phosphatase 83 U/L (39-117); Anion Gap 8 (12-20); Aspartate Amino Transferase 22 U/L (5-31); Bilirubin Total 0.2 mg/dL (0.0-1.0); Blood Urea Nitrogen 7 mg/dL (9-16); Calcium 9.3 mg/dL (8.4-10.2); Carbon Dioxide 26 mmol/L (22-29); Chloride 109 mmol/L (96-108); Cholesterol 197 mg/dL (<200); Estimated Glomerular Filt Rate > 60; Glucose Random 93 mg/dL (60-115); HDL Cholesterol 50 mg/dL (>40); Iron 227 mcg/dL (30-160); LDL Cholesterol Calculated 129 mg/dL (<100); Percent Iron Saturation 68 % (15-50); Sodium 139 mmol/L (135-145); Total Iron Binding Capacity 335 mcg/dL (228-428); Total Protein 6.7 g/dL (6.5-8.0); Triglycerides 92 mg/dL (<150); Unsaturated Iron Binding 108 ug/dL
== END 2024-08-20 14:06 | disposition home or self-care (01) ==
LOC: HO.WFDLDS 14:05
PROVIDERS: Visit Provider Nurse Practitioner Family
DX: E78.2 Mixed hyperlipidemia (principal); D50.9 Iron deficiency anemia, unspecified
CPT/HCPCS: 36415; 80053; 80061; 83540; 85027

== ENCOUNTER 2024-10-26 11:53 | Outpatient (AMB) | payer OTHER, SELFPAY ==
--- NOTE | 2024-10-26 12:04 | A.OFFPC_ITS ---
Vital Signs 10/26/24 12:06 Height 5 ft 6 in Weight 216 lb BMI 34.9 BP 134/76 Blood Pressure Location Lt brachial Position Sitting Respiration 12 Pulse 76 Pulse Source Pulse Oximeter Temp 97.5 F Temp Source Oral Pulse Oximetry (%) 97 Oxygen Delivery Method Room Air Intake Visit Reasons: PE Intake Note: annual physical Uniform Room Attendant Required: No Allergies atorvastatin Allergy (Mild, Verified 10/26/24 12:24) Rash Medication List - Last Reconciled 10/26/24 by KRISSY Barth ferrous fumarate 325 mg PO BID 90 days Tobacco use date assessed: 10/26/24 Dental Screening Dental Screen Date: 10/26/24 Did you have a dental visit in the last 12 months?: Yes Did you have a dental problem in the last 6 months where you did not have access to dental care?: No Was dental information given to patient?: Patient has dentist HPI HPI Comments History of Present Illness Details 43 y/o F with Iron Def anemia, obesity Family hx: reports no change No hospital visits last year Surgery: None Health Maintenance: Immunizations: Tdap, flu UTD Mammogram - overdue ordered today Pap: 2021 reported as normal unsure where. DEXA n/a still getting periods Colon: has never had one referred today Specialists: None The patient is a 43-year-old female presenting for a routine health maintenance examination. During the visit, multiple health concerns were addressed, including dyslipidemia, iron deficiency anemia, cervical cancer screening, and the potential need for a colorectal cancer screening. The patient has a known history of dyslipidemia which has been managed without the use of atorvastatin due to a severe allergic reaction. The patient's LDL cholesterol level was previously recorded at 129, which while higher than the preferred level (<100), showed improvement due to lifestyle modifications, as indicated by a downward trend. The patient's HDL cholesterol level is favorable at 50, which provides heart protection. The patient has been diagnosed with iron deficiency anemia and is currently managing it with iron supplementation taken twice daily. This condition was noted to be stable based on recent laboratory workups performed in August. The patient does report occasional dizziness upon positional changes, which may be related to anemia. In terms of health maintenance, the patient received her last mammogram at an off-site facility in < 2021 but did not have a copy on file for review. She expressed interest in updating her mammogram screening at a nearby facility to ensure her records are available for assessment. The patient also had a Pap smear conducted in 2021 but has not had a repeat examination since. She expres sed interest in a referral to an TUB WASHER within the current system for this purpose. There was an assessment of the potential need for colorectal cancer screening, given the patient's age of 43. She agreed to proceed with a screening option. Additionally, there was an examination of the patient's neck, where a slight fullness was noted on the right side, mild pain with turning her head to the eyal t. Health Maintenance - Discussed current immunization status and confirmed up-to-date vaccinations. - Scheduled update for mammogram screeni ng. - Referral to TUB WASHER for Pap smear to en sure cervical cancer screening is up to date. - Discussed colorectal cancer screening and initiated referral for the test. - Encouraged continued lifestyle modific ations contributing to improved lipid profile and weight management. - Reviewed successful management of dysl ipidemia without statins due to allergy. - Ultrasound of the thyroid recommended due to observed fullness of the neck. Social History - Denies current alcohol consumption. - Reports no tobacco use. - No changes in family status or living conditions. - Exercises lifestyle management as note d by positive cardiovascular health t renoscar. Review of Systems - Constitutional: Reports no recent surg allyson or hospitalizations. - Respiratory: Denies any breathing diff iculties. - Cardiovascular: Denies chest pain. - Gastrointestinal: Denies abdominal rosa n or tenderness. - Neurological: Reports occasional dizzi ness with position change. - Ophthalmologic: Denies any changes in vision. - Dermatological: Denies any changes or rashes noticed. - Genitourinary: Denies urinary issues. Physical Exam General: Well developed, well nourished, in no acute distress. Appears stated age. Head: Normocephalic, atraumatic. Eyes: Pupils are equal, round and reactive to light and accommodation. Conjunctivae are clear. Vision grossly normal. Ears: TMs clear AU, EACS WNL Nose: Patent, without discharge. Mouth: There are no ulcers or lesions noted. No inflammation, no post nasal drip, no plaques nor exudates. Neck: Supple, no adenopathy, + thyromegaly, mild pain w palp behind STN on R Lungs: Clear to auscultation bilaterally. No rales, rhonchi or wheeze noted. Good air flow in all valente. Heart: Regular rate and rhythm. No murmurs, click, rubs or gallops are noted. Abdomen: Bowel sounds present in all quadrants. The abdomen is soft, nontender, with no masses or organomegaly noted. No hernias are noted. Musculoskeletal: Joints are nontender, without swelling, redness, or effusions. Range of motion is observed to be normal. Pulses: Peripheral pulses are equal and palpable bilaterally. Extremities: No clubbing, cyanosis nor edema is noted. Neurologic: Gait and station normal. Cranial Nerves 2-12 intact. Motor strength grossly symmetrical and intact. No sensory loss. Balance normal. Skin: No rashes, ulcers, or lesions noted. Turgor is good. Skin color is good. Hair and nails are without abnormalities. Psych: Normal eye contact, affect and mood appropriate, and normal interactions. Patient is alert and appropriate to context. Results - Labs: Recent lab work in August show s stable anemia, normal kidney function, no signs of diabetes. - Cholesterol: LDL at 129, HDL favorable at 50. Discussion Notes During the visit, I discussed with the patient the necessity of updating routine health screenings and surveillance. Regarding her dyslipidemia, I emphasized the protective role of her favorable HDL levels and the improvement of her LDL levels through non-pharmacological means due to her atorvastatin allergy. We reviewed the need for continued monitoring of her anemia, and I ensured she was informed about her iron supplementation regimen. For potential thyroid enlargement, I explained the reason for ordering an ultrasound to rule out any pathology, ensuring I obtained her consent for the procedure. I communicated the importance of maintaining up-to-date cancer screenings, acknowledging her proactive stance on mammography and Pap smear appointments. Finally, I reinforced the vital role of lifestyle choices in her current health status and encouraged continuing her current health maintenance efforts. Patient Instructions - Continue current iron supplementation as directed. - Monitor for intensified dizziness, trung ecially in relation to anemia. - Attend scheduled mammogram and Pap sme ar appointments. - Await scheduling for thyroid ultrasoun d and colorectal cancer screening. - Maintain lifestyle and dietary changes to support cardiovascular and general health. - Report any new symptoms or concerns th rough the patient portal. Plan The management plan for today's visit encompasses several aspects of the patient's health. For dyslipidemia, I conclude that pharmacological treatment remains unnecessary given the trending improvement and protective HDL levels. We will continue monitoring the patient's cholesterol levels in subsequent follow- ups. For iron deficiency anemia, current treatment appears effective, though I will ensure vigilance for any exacerbation of symptoms, with laboratory investigations planned in six months. Cervical cancer screening will be updated through a referral to an TUB WASHER within the system. An advanced screening for colorectal cancer is appropriate due to age, with arrangements for testing now in place. Based on physical examination findings, a thyroid ultrasound is necessary to address the observed thyroid fullness, and I have arranged for this diagnostic measure to ensure accurate assessment. My overall focus remains on preventative health and maintaining the patient's stable condition through proactive health practices and timely diagnostic evaluations. Patient was informed and verbally consented to the use of an ambient scribe for clinic note documentation during this visit. RTO 6 mo labs anemia lipids [facility] Medical History (Updated 10/26/24 @ 17:59 by KRISSY Barth) Anemia Surgical History No pertinent past surgical history Family History Maternal Aunt Breast cancer Mother High blood pressure Prediabetes Social History Household Members Other:: son Housing: Apartment Alcohol intake: never Patient Tobacco Use Status: Never used Tobacco e-Cigarette/Vaping Use: Never Used Second Hand Smoke Exposure: No service: No Current occupational status: employed and student Cognitive needs: No Hearing needs: No Vision needs: No Questionnaire PHQ-9 Over the last 2 weeks, how often have you been bothered by any of the following problems? 1. Little interest or pleasure in doing things: not at all 2. Feeling down, depressed, or hopeless: not at all 3. Trouble falling or staying asleep, or sleeping too much: not at all 4. Feeling tired or having little energy: not at all 5. Poor appetite or overeating: not at all 6. Feeling bad about yourself - or that you are a failure or have let yourself or your family down: not at all 7. Trouble concentrating on things, such as reading the newspaper or watching television: not at all 8. Moving or speaking so slowly that other people could have noticed. Or the opposite - being so fidgety or restless that you have been moving around a lot more than usual: not at all 9. Thoughts that you would be better off or of hurting yourself in some way: not at all Total score: 0 Depression Screening Interpretation: Negative Depression Screening Done: Yes 36482 - PHQ-9 Billing: Yes Source: Developed by Drs. Nathan Luke, Sonal Hernandez, Iam Hernandez and colleagues, with an educational leda from [employer]. Thrive Questionnaire Date Thrive assessed: 10/26/24 I am a: Patient What is your living situation today?: I have a steady place to live Within the past 12 months, did the food you bought not last and you didn't have the money to get more?: Never true Within the past 12 months, did you worry whether your food would run out before you got money to buy more?: Sometimes True Do you have trouble paying for medicines?: No Do you have trouble getting transportation to medical appointments?: No Do you have trouble paying your heating and electricity bill?: No Do you have trouble taking care of your child, family member or friend?: No Do you have trouble with day-to-day activities such as bathing, preparing meals, shopping, managing finances, etc.?: No Are you currently unemployed and looking for a job?: No Are you interested in more education?: No Please select the resources that you would like help with: None Currently or been in a relationship where the following occur: No concerns repo rted THRIVE Score: 1 AUDIT C Alcohol Use Questionnaire (AUDIT-C) 1. How often do you have a drink containing alcohol?: Never 2. How many drinks containing alcohol do you have on a typical day when you are drinking?: 1 or 2 3. How often do you have six or more drinks on one occasion?: Never Total Score: 0 Score Reviewed/Action Taken: Yes WAYLON-7 AMB Questionnaire WAYLON-7 Date WAYLON - 7 assessed: 10/26/24 Feeling nervous, anxious, or on edge: 0 = Not at all Not being able to stop or control worryin = Not at all Worrying too much about different things: 0 = Not at all Trouble relaxin = Not at all Being so restless that it is hard to sit still: 0 = Not at all Becoming easily annoyed or irritable: 0 = Not at all Feeling afraid as if something awful might happen: 0 = Not at all Total WAYLON-7 score (0-4 normal; 5-9 mild; 10-14 moderate; 15-21 severe): 0 Source: Developed by Drs. Nathan Luke, Sonal Hernandez, Iam Hernandez and colleagues, with an educational leda from [employer]. WAYLON-7 Assessment Billing WAYLON-7 Assessment Tool: WAYLON-7 Assessment [id number] Physical exam (Primary Care) Vital Signs: Last Vital Signs Temp 97.5 F 10/26/24 12:06 Pulse 76 10/26/24 12:06 Resp 12 10/26/24 12:06 BP 134/76 10/26/24 12:06 Pulse Ox 97 10/26/24 12:06 Oxygen Delivery Method Room Air 10/26/24 12:06 BMI result Body Mass Index 34.9 BMI Assessment/Plan discussion: High BMI High, discussed plan: lifestyle Tobacco/Smoking Status: Tobacco use Status Tobacco use date assessed 10/26/24 10/26/24 12:08 Patient Tobacco Use Status Never used Tobacco 10/26/24 12:08 e-Cigarette/Vaping Use Never Used 10/26/24 12:08 PHQ-9: PHQ-9 Score PHQ-9: Total score 0 10/26/24 12:28 Depression Screening Interpretation: Negative Thrive Assessment: Date of Thrive Assessment Date Thrive assessed 10/26/24 10/26/24 12:08 Currently or been in a relationship where the following occur: No concerns reported Coding Level of Care Code Est Pt Prev Care 40-64y(34292) Diagnoses Normal physical exam Z00.00 Thyromegaly E01.0 Mixed hyperlipidemia E78.2 Hyperlipidemia type: mixed hyperlipidemia Other iron deficiency anemia D50.8 Iron deficiency anemia type: other iron deficiency Allergy to statin medication Z88.8 Obesity (BMI 30.0-34.9) E66.9 Additional Codes WAYLON-7 Assessment Billing - WAYLON-7 Assessment Tool: WAYLON-7 Assessment [id number] ([id number]) PHQ-9 - 26557 - PHQ-9 Billing: Yes ([id number]) Assessment & Plan Assessment & Plan (1) Normal physical exam: Code(s): Z00.00 - Encounter for general adult medical examination without abnormal findings Category: Medical (2) Thyromegaly: Code(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 Category: Medical (3) Hyperlipidemia: Code(s): E78.5 - Hyperlipidemia, unspecified Category: Medical Qualifiers: Hyperlipidemia type: mixed hyperlipidemia Qualified Code(s): E78.2 - Mixed hyperlipidemia (4) Iron deficiency anemia: Code(s): D50.9 - Iron deficiency anemia, unspecified Category: Medical Qualifiers: Iron deficiency anemia type: other iron deficiency Qualified Code(s): D50.8 - Other iron deficiency anemias (5) Allergy to statin medication: Code(s): Z88.8 - Allergy status to other drugs, medicaments and biological substances Category: Medical (6) Obesity (BMI 30.0-34.9): Code(s): E66.9 - Obesity, unspecified Category: Medical Plan . Orders: Orders MM tomosynthesis screening BI Today Z12.31 - Encounter for screening mammogram for malignant neoplasm of breast Complete Blood Count no Diff 6 Months D50.8 - Other iron deficiency anemias, E78.2 - Mixed hyperlipidemia IRON PROFILE 6 Months D50.8 - Other iron deficiency anemias, E78.2 - Mixed hyperlipidemia Lipid Panel 6 Months D50.8 - Other iron deficiency anemias, E78.2 - Mixed hyperlipidemia US thyroid Today E01.0 - Iodine-deficiency related diffuse (endemic) goiter Comprehensive Met. Panel 6 Months D50.8 - Other iron deficiency anemias, E78.2 - Mixed hyperlipidemia TSH reflex Free T4 6 Months E01.0 - Iodine-deficiency related diffuse (endemic) goiter Referrals TUB WASHER Referral Z12.4 - Encounter for screening for malignant neoplasm of cervix Gastroenterology Referral Z12.11 - Encounter for screening for malignant neoplasm of colon Patient Instructions: Health screenings for women You should visit your health care provider from time to time, even if you are healthy. The purpose of these visits is to: Screen for medical issues Assess your risk for future medical problems Encourage a healthy lifestyle Update vaccinations and other preventive care services Help you get to know your provider in case of an illness Information Even if you feel fine, you should still see your provider for regular checkups. These visits can help you avoid problems in the future. For example, the only way to find out if you have high blood pressure is to have it checked regularly. High blood sugar and high cholesterol levels also may not have any symptoms in the early stages. A simple blood test can check for these conditions. There are specific times when you should see your provider or receive specific health screenings. The [place] Preventive Services Task Force publishes a list of recommended screenings. Below are screening guidelines for women ages 18 to 39. BLOOD PRESSURE SCREENING Your blood pressure should be checked at least once every 3 to 5 years if: Your blood pressure is in the normal range (top number less than 120 mm Hg and bottom number less than 80 mm Hg) You don't have risk factors for high blood pressure Ask your provider if you need your blood pressure checked more often if: The top number is 120 to 129 mm Hg or the bottom number is 70 to 79 mm Hg You have diabetes, heart disease, kidney problems, are overweight, or have certain other health conditions You have a first-degree relative with high blood pressure You are Black You had high blood pressure during a If the top number is 130 mm Hg or greater or the bottom number is 80 mm Hg or greater, this is considered stage 1 hypertension. Schedule an appointment with your provider to learn how you can reduce your blood pressure. Watch for blood pressure screenings in your area. Ask your provider if you can stop in to have your blood pressure checked. BREAST CANCER SCREENING Experts do not agree about the benefits of breast self-exams in finding breast cancer or saving lives. Talk to your provider about what is best for you. A screening mammogram is not recommended for most women under age 40. Your provider may discuss and recommend mammograms, MRI scans, or ultrasounds if you have an increased risk for breast cancer, such as: A mother or sister who had breast cancer at a young age (most often starting screening earlier than the age the close relative was diagnosed) You carry a high-risk genetic marker CERVICAL CANCER SCREENING Cervical cancer screening should start at age 21 years unless your provider advises otherwise. After the first test: Women ages 21 through 29 should have a Pap test every 3 years. Exoprts do not agree on whether HPV testing is recommended for this age group. Women ages 30 through 65 should be screened with either a Pap test every 3 years or the HPV test every 5 years or both tests every 5 years (called cotesting ). Women who have been treated for precancer (cervical dysplasia) should continue to have Pap tests for 20 years after treatment or until age 65, whichever is longer. If you have had your uterus and cervix removed (total hysterectomy), and you have not been diagnosed with cervical cancer or precancer (high grade cervical neoplasia), you do not need cervical cancer screening. CHOLESTEROL SCREENING Cholesterol screening should begin at: Age 45 for women with no known risk factors for coronary heart disease Age 20 for women with known risk factors for coronary heart disease Repeat cholesterol screening should take place: Every 5 years for women with normal cholesterol levels More often if changes occur in lifestyle (including weight gain and diet) More often if you have diabetes, heart disease, kidney problems, or certain other conditions DIABETES SCREENING You should be screened for diabetes starting at age 35 and then repeated every 3 years if you have no risk factors for diabetes. Screening may need to start earlier and be repeated more often if you have other risk factors for diabetes, such as: You have a first degree relative with diabetes. You are overweight or have obesity. You have high blood pressure, prediabetes, or a history of heart disease. Screening for diabetes should be done if you are planning to become and you are overweight and have other risk factors such as high blood pressure. DENTAL EXAM Go to the dentist once or twice every year for an exam and cleaning. Your dentist will evaluate if you need more frequent visits. EYE EXAM Have an eye exam every 5 to 10 years before age 40. If you have vision problems, have an eye exam every 2 years or more often if recommended by your provider. You should have an eye exam that includes an examination of your retina (back of your eye) at least every year if you have diabetes. IMMUNIZATIONS Commonly needed vaccines include: Flu shot: get one every year. COVID-19 vaccine: ask your provider what is best for you. Tetanus-diphtheria and acellular pertussis (Tdap) vaccine: have one at or after age 19 as one of your tetanus-diphtheria vaccines if you did not receive it as an adolescent. Tetanus-diphtheria: have a booster (or Tdap) every 10 years. Varicella vaccine: receive 2 doses if you never had chickenpox or the varicella vaccine. Hepatitis B vaccine: receive 2, 3, or 4 doses, depending on your exact circumstances. Measles, mumps, and rubella (MMR) vaccine: receive 1 to 2 doses if you are not already immune to MMR. Your provider can tell you if you are immune. Ask your provider about the human papillomavirus (HPV) vaccine if: You have not received the HPV vaccine in the past You have not completed the full vaccine series (you should catch up on this shot) Ask your provider if you should receive other immunizations if you have certain health problems that increase your risk for some diseases such as pneumonia. INFECTIOUS DISEASE SCREENING Women who are sexually active should be screened for chlamydia and gonorrhea up until age 25. Women 25 years and older should be screened for chlamydia and gonorrhea if at high risk. Screening for hepatitis C: All adults ages 18 to 79 should get a one-time test for hepatitis C. people should be screened at every . Screening for human immunodeficiency virus (HIV): All people ages 15 to 65 should get a one-time test for HIV. Depending on your lifestyle and medical history, you may also need to be screened for infections such as syphilis and HIV, as well as other infections. PHYSICAL EXAM All adults should visit their provider from time to time, even if they are healthy. The purpose of these visits is to: Screen for disease Assess your risk of future medical problems Encourage a healthy lifestyle Update your vaccinations and other preventive care services Maintain a relationship with a provider in case of an illness Your height, weight, and BMI should be checked at every exam. During your exam, your provider may ask you about: Depression and anxiety Diet and exercise Alcohol and tobacco use Safety issues, such as using seat belts, smoke detectors, and intimate partner violence Your medicines and risk for interactions SKIN SELF-EXAM Your provider may check your skin for signs of skin cancer, especially if you're at high risk, such as if you: Have had skin cancer before Have close relatives with skin cancer Have a weakened immune system OTHER SCREENING Talk with your provider about colon cancer screening if you have a strong family history of colon cancer or polyps, or if you have had inflammatory bowel disease or polyps yourself. Routine bone density screening of women under 40 is not recommended.
[2024-10-26 12:06] VITALS: BP 134/76; PULSE 76; RESP 12; TEMP 36.4; O2SAT 97; BMI 34.9
== END 2024-10-26 12:40 | disposition home or self-care (01) ==
PROVIDERS: PCP Nurse Practitioner Family; Visit Provider Nurse Practitioner Family
DX: Z00.00 Encounter for general adult medical examination without abnormal findings (principal); E01.0 Iodine-deficiency related diffuse (endemic) goiter; E66.9 Obesity, unspecified; Z68.34 Body mass index [BMI] 34.0-34.9, adult; E78.2 Mixed hyperlipidemia; D50.8 Other iron deficiency anemias; Z88.8 Allergy status to other drugs, medicaments and biological substances

== ENCOUNTER → 2024-10-26 11:53 | Outpatient (BNVA) | payer OTHER, SELFPAY | PROVIDERS: PCP Nurse Practitioner Family; Visit Provider Nurse Practitioner Family | DX: Z00.00 Encounter for general adult medical examination without abnormal findings (principal); E01.0 Iodine-deficiency related diffuse (endemic) goiter; E78.2 Mixed hyperlipidemia; D50.8 Other iron deficiency anemias; E66.9 Obesity, unspecified; Z68.34 Body mass index [BMI] 34.0-34.9, adult; Z88.8 Allergy status to other drugs, medicaments and biological substances | CPT/HCPCS: 96127 ==

== ENCOUNTER 2024-11-07 09:29 | Outpatient (REF) | payer OTHER, SELFPAY | END 2024-11-07 09:30 | disposition home or self-care (01) | LOC: HO.US 09:29 | PROVIDERS: PCP Nurse Practitioner Family; Visit Provider Nurse Practitioner Family | DX: E01.0 Iodine-deficiency related diffuse (endemic) goiter (principal) | CPT/HCPCS: 76536 ==

== ENCOUNTER → 2024-11-07 09:30 | Outpatient (BNV) | payer OTHER, SELFPAY | PROVIDERS: PCP Nurse Practitioner Family; Visit Provider Radiology Diagnostic Radiology | DX: E01.0 Iodine-deficiency related diffuse (endemic) goiter (principal) | CPT/HCPCS: 76536 ==

== ENCOUNTER 2024-12-10 11:42 | Outpatient (REF) | payer OTHER, SELFPAY | END 2024-12-10 11:43 | disposition home or self-care (01) | LOC: HO.MAMMO 11:42 | PROVIDERS: PCP Nurse Practitioner Family; Visit Provider Nurse Practitioner Family | DX: Z12.31 Encounter for screening mammogram for malignant neoplasm of breast (principal) | CPT/HCPCS: 77063; 77067 ==

== ENCOUNTER → 2024-12-10 12:00 | Outpatient (BNV) | payer OTHER, SELFPAY | PROVIDERS: PCP Nurse Practitioner Family; Visit Provider Internal Medicine | DX: Z12.31 Encounter for screening mammogram for malignant neoplasm of breast (principal) | CPT/HCPCS: 77063; 77067 ==

== ENCOUNTER 2024-12-31 08:45 | Outpatient (REF) | payer OTHER, SELFPAY ==
[2024-12-31 21:51] LABS: Bacterial Vaginosis PCR POSITIVE (Negative); Candida Group PCR NOT DETECTED (Not Detect); Candida glab krusei PCR NOT DETECTED (Not Detect); Trichomonas vaginalis PCR NOT DETECTED (Not Detect)
[2024-12-31 22:32] LABS: CT PCR NOT DETECTED (Not Detect.); NG PCR NOT DETECTED (Not Detect.)
[2025-01-03 14:34] LABS: HPV Genotype 16 Negative (Negative); HPV Genotype 18 Negative (Negative); HPV High Risk Negative (Negative)
== END 2024-12-31 08:46 | disposition home or self-care (01) ==
LOC: HO.LNP 08:45
PROVIDERS: PCP Nurse Practitioner Family; Visit Provider Advanced Practice Midwife
DX: Z01.419 Encounter for gynecological examination (general) (routine) without abnormal findings (principal); R87.611 Atypical squamous cells cannot exclude high grade squamous intraepithelial lesion on cytologic smear of cervix (ASC-H); Z11.3 Encounter for screening for infections with a predominantly sexual mode of transmission; Z72.89 Other problems related to lifestyle
CPT/HCPCS: 81515; 87491; 87591; 87626; 88175

== ENCOUNTER 2024-12-31 08:45 | Outpatient (AMB) | payer OTHER, SELFPAY ==
--- NOTE | 2024-12-31 08:56 | MHC.OFFVIS ---
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 She does think she had something with her Pap smear that needed follow-up after that 1. She is not sexually active and has not been since before the of her 14-year-old. She has 2 children delivered vaginally 1 at [facility] and 1 at [facility] 1 child had meconium aspiration but both deliveries were normal deliveries. She sees her primary care provider and her only issues that she mentions today are her periods are heavy and she does have iron-deficiency anemia for which she is taking iron twice a day. She does know about hormones that can be used to make her periods leather polisher and her primary spoke to her about that as well but she is not interested at this time. She is not sexually active and does not need a method of control and would prefer taking as few medications as possible. [facility] Medical History Anemia Surgical History No pertinent past surgical history Family History (Updated 12/31/24 @ 09:02 by Megha Vasques CMA) Maternal Aunt Breast cancer Mother High blood pressure Prediabetes Breast cancer Social History Household Members Other:: son Housing: Apartment Alcohol intake: never Patient Tobacco Use Status: Never used Tobacco e-Cigarette/Vaping Use: Never Used Second Hand Smoke Exposure: No service: No Current occupational status: employed and student Cognitive needs: No Hearing needs: No Vision needs: No Female Reproductive History Menstrual Date of last menstrual period: 11/17/24 control method: none and abstinence Total pregnancies: 2 Full term: 2 Number of Living Children: 2 Date of Mammogram: 12/10/24 Physical Exam Vital Signs: Last Vital Signs BP 130/70 12/31/24 08:59 BMI result Body Mass Index 34.7 Const General: healthy appearing, comfortable, no acute distress, well developed and alert Nutritional Appearance: average body habitus Orientation/consciousness: patient oriented x3 Limitations: no limitations HEENT Head: Yes normocephalic Neck Neck: Yes normal visual inspection Chest Chest palpation & inspection: normal inspection of the chest Breast/axilla inspection: normal inspection of the breasts and normal inspection of the axillae Breast/axilla palpation: normal palpation of the breasts and normal palpation of the axillae Resp Effort & Inspection: normal respiratory effort GI Inspection: Yes normal to inspection, No Abdominal wall edema and No distended Palpation (GI): Soft to palpation and nontender Other: External exam within normal limits. Vagina pink and moist there is a clear whitish slightly bubbly normal-appearing discharge cervix multiparous pink smooth healthy downward facing Cervix long close thick mobile nontender. Uterus small midposition anteverted mobile nontender adnexa nontender good muscle tone overall. General: Yes bladder normal to palpation External Female Exam: normal external appearance and normal appearance of the urethra Speculum Exam - Vagina: normal appearance of the vagina, normal palpation and normal vaginal discharge Speculum Exam - Cervix: normal appearance of the cervix, normal palpation and nontender Bimanual exam- vagina & uterus: normal bimanual exam, normal palpation, uterine size normal, bladder normal to palpation, consistency normal, normal palpation, uterine mobility normal, uterine shape normal, No Cervical tenderness present, non-tender and no cervical motion tenderness Bimanual Exam- Adnexa, other: normal adnexae, no masses, normal and No adnexal tenderness Neuro General: patient oriented x3 Results Reviewed Results Reviewed: Reviewed her labs including past CBCs Assessment & Plan Assessment & Plan (1) Iron deficiency anemia: Code(s): D50.9 - Iron deficiency anemia, unspecified Category: Medical Qualifiers: Iron deficiency anemia type: other iron deficiency Qualified Code(s): D50.8 - Other iron deficiency anemias (2) Menorrhagia with regular cycle: Code(s): N92.0 - Excessive and frequent menstruation with regular cycle Category: Medical Plan Reviewed in particular her heavy menses and her anemia for which she is on iron twice a day. Reviewed that normally consideration is given to a hormonal method of control to help make the periods leather polisher especially if it gets to the level of requiring medication to deal with the anemia. She however has brought her CBC up by taking her iron and she is trying to eat well and be healthy and she would rather not be on hormones if she does not need to she is not sexually active so I did educate her about all the different methods of control that would be considered in her age range which would basically be norethindrone OCPs or a Mirena IU S and she is currently not interested in either 1 of them at the moment and will consider her options I did offer her a pelvic ultrasound to just see if there is some fibroids or something that could explain why her periods are heavy and we will have a visit after to review the findings. She is up-to-date on her mammograms she sees her primary care provider regularly she is trying to eat well and take care of herself she has no concerns about STIs though she requested that testing be done just to be 100% sure from possible longstanding past exposure. RTC after the ultrasound to review findings. Orders: Orders US pelvic and transvaginal Today D50.8 - Other iron deficiency anemias, N92.0 - Excessive and frequent menstruation with regular cycle, Z01.419 - Encounter for gynecological examination (general) (routine) without abnormal findings, Z12.4 - Encounter for screening for malignant neoplasm of cervix Coding Level of Care Code New Pt Prev Care 40-64y(69338) Diagnoses Other iron deficiency anemia D50.8 Iron deficiency anemia type: other iron deficiency Menorrhagia with regular cycle N92.0
[2024-12-31 08:59] VITALS: BP 130/70; BMI 34.7
== END 2024-12-31 11:25 | disposition home or self-care (01) ==
LOC: HO.HWS 08:45
PROVIDERS: PCP Nurse Practitioner Family; Visit Provider Advanced Practice Midwife
DX: Z01.419 Encounter for gynecological examination (general) (routine) without abnormal findings (principal); D50.8 Other iron deficiency anemias; N92.0 Excessive and frequent menstruation with regular cycle
CPT/HCPCS: 99386; 99459

== ENCOUNTER 2025-01-08 07:34 | Outpatient (REF) | payer OTHER, SELFPAY ==
--- NOTE | ~2025-01-08 | CT_ITS ---
CLINICAL HISTORY: E01.0 - Iodine-deficiency related diffuse (endemic) goiter --- Additional Notes or Special Instructions: include thyroid CT soft tissue neck with contrast Comparison: None Findings: Homogeneous but enlarged thyroid gland. Homogeneous nodule protrudes anterior to isthmus. No further assessment is possible on CT. Recommend follow-up thyroid ultrasound. Tonsils, adenoids and epiglottis are within normal limits. There is no prevertebral soft tissue swelling or fluid. Bilateral parotid and submandibular glands unremarkable. No significant adenopathy in the neck by size criteria. Airway midline without deviation or displacement. No foreign bodies are demonstrated. Visualized upper lungs and sinuses are clear. No acute bony abnormalities demonstrated. Impression: Enlarged thyroid with exophytic isthmus nodule Recommend follow-up thyroid ultrasound This document has been electronically signed by: Wayne Regalado MD on 01/08/2025 20:25:20
[2025-01-08] MEDS: iohexoL 350 MG/ML 75 ML INFUS..BTL 60 ML IV (08:40)
== END 2025-01-08 07:35 | disposition home or self-care (01) ==
LOC: HO.CT 07:34
PROVIDERS: PCP Nurse Practitioner Family; Visit Provider Nurse Practitioner Family
DX: R59.0 Localized enlarged lymph nodes (principal); E01.0 Iodine-deficiency related diffuse (endemic) goiter
CPT/HCPCS: 70491; Q9967

== ENCOUNTER → 2025-01-08 07:36 | Outpatient (BNV) | payer OTHER, SELFPAY | PROVIDERS: PCP Nurse Practitioner Family; Visit Provider Radiology Diagnostic Radiology | DX: E04.1 Nontoxic single thyroid nodule (principal) | CPT/HCPCS: 70491 ==

== ENCOUNTER 2025-01-31 12:10 | Outpatient (AMB) | payer OTHER, SELFPAY ==
--- NOTE | 2025-01-31 12:27 | A.OFFVIS_ITS ---
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 Last mammogram in 12/11 was BI-RADS 2 [facility] Medical History Anemia Surgical History No pertinent past surgical history Family History Maternal Aunt Breast cancer Mother High blood pressure Prediabetes Breast cancer Social History Household Members Other:: son Housing: Apartment Alcohol intake: never Patient Tobacco Use Status: Never used Tobacco e-Cigarette/Vaping Use: Never Used Second Hand Smoke Exposure: No service: No Current occupational status: employed and student Cognitive needs: No Hearing needs: No Vision needs: No Female Reproductive History Menstrual Date of last menstrual period: 01/19/25 Office Procedures Colposcopy Colposcopy: Pre-Procedure Counseling: Before beginning the procedure, I conducted comprehensive counseling with the patient. We thoroughly discussed the procedure itself, including its details, alternatives, and all associated risks. This included but not limited to the following complications such as bleeding, infection, and injury to the vagina, bladder, and vessels, as well as the potential need for transfusion with all its associated risks. Subsequently, the patient sign the consent. Pap smear result: ASC-H Urine test in office = Negative Procedure: During the procedure, the following steps were performed: A speculum was inserted, and acetic acid was applied. Colposcopy was conducted, allowing visualization of the transformation zone. Acetowhite lesions were identified at the 6+ 7+ 11+ 12+ 1 o'clock position. Cervical biopsies were obtained from the6+ 7+ 11+ 12+ 1 o'clock position, followed by an endocervical curettage (ECC). Vaginoscopy of the upper vagina revealed no evidence of aceto-white lesions. Hemostasis was achieved using Monsel solution, and the patient tolerated the procedure well. Post-Procedure Instructions: The patient was advised to promptly contact the office or the after hours answering service or go to the emergency room if experiencing a temperature exceeding 100.4?F, abdominal pain, nausea/vomiting, or bleeding. Additionally, the patient was instructed to abstain from vaginal intercourse and bathtub use. The patient confirmed understanding of these instructions. Discharge Instructions: The patient was instructed to schedule a follow-up appointment in 2 weeks for further evaluation and management. Please note that this note was generated using a voice recognition program, and errors may have occurred during field education director. [id number] of cervix including upper vagina with biopsy and ECC Procedure code (CPT) selection complete Endometrial Biopsy Details: The patient was counseled regarding the indication and benefits of endometrial sampling to rule out endometrial pathology including not limited to endometrial hyperplasia or endometrial cancer and others; The alternatives (Either do nothing vs. hysteroscopy D&C) & the risks were discussed with the patient including but not limited: pain, uterine perforation, bleeding, infection, possible injury to bladder, bowel, ureter, possible need for blood transfusion with all its possible risks. The patient verbalized understanding all questions answered and signed consent. Urine test done in the office was negative The patient was placed into the dorsal lithotomy position; a speculum was inserted in the vagina. Using aseptic technique for the procedure, the cervix was cleansed with Betadine. The anterior lip of the cervix was grasped with a single tooth tenaculum. The uterus was sounded to 7 cm with a 4 mm Pipelle was used. Tissues samples were obtained and placed in formalin, in a patient labeled container and sent to the pathology department. At the end of the procedure, there was minimal bleeding noted The patient tolerated the procedure well and was discharged in good condition with the following instructions: Nothing in the vagina until the bleeding stops. No sex until the bleeding stops, to call if any of the following occurs: fever (>100.4), flu-like symptoms, abdominal pain, heavy bleeding, four smelling vaginal discharge. The patient was instructed to schedule a Follow up appointment in 2 weeks to discuss pathology results of the biopsy and treatment options. This note was generated with a voice recognition program. Some errors may have been overlooked during the review of this note. Sometimes these errors may affect the content or meaning of a given sentence. [id number] Biopsy Results AMB Test Urine AMB Test Urine Negative Last Edit by JOSH Grimes on 01/31/25 12:40 Assessment & Plan Assessment & Plan (1) Pap smear of cervix with ASCUS, cannot exclude HGSIL: Comment: Endometrial cells present HPV negative Code(s): R87.611 - Atypical squamous cells cannot exclude high grade squamous intraepithelial lesion on cytologic smear of cervix (ASC-H) Category: Medical Plan: Discussed with the patient the result of her abnormal pap, its significance, risk of progression, persistence, and regression. the false positive/negative rate of a Pap smear as a screening test in detecting cervical cancer and the ind ication for a diagnostic test -colposcopy, biopsy, endocervical curettage was EMB. The patient verbalized understanding and agreed with the plan, all questions answered. Colpo biopsy ECC with EMB done, see procedure note (2) Abnormal uterine bleeding: Code(s): N93.9 - Abnormal uterine and vaginal bleeding, unspecified Category: Medical Plan: GC and chlamydia taken CBC, TSH, FSH/LH, HCG ordered and pelvic ultrasound schedule in a week. Discussed with the patient the different causes of abnormal bleeding including thyroid disorders, uterine and ovarian pathology, endometrial hyperplasia, carcinoma and other potential causes. Discussed with the patient the work up including CBC (to r/o anemia), TSH, FSH/LH, pelvic Ultrasound, endometrial biopsy to r/o endometrial pathology. All questions answered and the patient verbalized understanding. EMB done, see procedure note Orders: Orders AMB HCG Urine Test Today Z32.02 - Encounter for test, result negative AMB Colposcopy Today R87.611 - Atypical squamous cells cannot exclude high grade squamous intraepithelial lesion on cytologic smear of cervix (ASC-H) AMB Endometrial Biopsy Today N93.9 - Abnormal uterine and vaginal bleeding, unspecified Complete Blood Count no Diff Today N93.9 - Abnormal uterine and vaginal bleeding, unspecified HCG Quantitative Today N93.9 - Abnormal uterine and vaginal bleeding, unspecified Lutenizing Hormone Today N93.9 - Abnormal uterine and vaginal bleeding, unspecified Surgical Today R87.611 - Atypical squamous cells cannot exclude high grade squamous intraepithelial lesion on cytologic smear of cervix (ASC-H), R87.618 - Other abnormal cytological findings on specimens from cervix uteri CT NG by PCR Today Z20.2 - Contact with and (suspected) exposure to infections with a predominantly sexual mode of transmission TSH reflex Free T4 Today N93.9 - Abnormal uterine and vaginal bleeding, unspecified Follicle Stimulating Hormone Today N93.9 - Abnormal uterine and vaginal bleeding, unspecified Coding Level of Care Code Est Pt Level 3 (20626) Procedure Only Diagnoses Pap smear of cervix with ASCUS, cannot exclude HGSIL R87.611 Abnormal uterine bleeding N93.9 CPT Codes Colposcopy - CPT: 75757-Jwkeeslxf of cervix including upper vagina with biopsy and ECC ([id number]) Endometrial Biopsy - CPT: 37164-Jwhhbdvvwif Biopsy ([id number])
[2025-01-31 12:38] VITALS: BMI 34.4
== END 2025-01-31 13:00 | disposition home or self-care (01) ==
LOC: HO.HWS 12:11
PROVIDERS: PCP Nurse Practitioner Family; Visit Provider Obstetrics & Gynecology
DX: R87.611 Atypical squamous cells cannot exclude high grade squamous intraepithelial lesion on cytologic smear of cervix (ASC-H) (principal); N93.9 Abnormal uterine and vaginal bleeding, unspecified; Z32.02 Encounter for pregnancy test, result negative
CPT/HCPCS: 57454; 58110; 99213

== ENCOUNTER 2025-01-31 12:10 | Outpatient (REF) | payer OTHER, SELFPAY ==
[2025-01-31 14:13] LABS: Hematocrit 26.2 % (37.0-47.0); Hemoglobin 7.9 g/dl (12.0-16.0); Mean Corpuscular HGB Conc 30.2 g/dl (31.0-35.0); Mean Corpuscular Hemoglobin 22.8 pg (27.0-33.0); Mean Corpuscular Volume 75.5 fL (80.0-98.0); Mean Platelet Volume 10.9 fL (9.4-12.3); Platelet Count 279 X10*3/uL (160-400); Red Blood Count 3.47 X10*6/uL (4.20-5.50); Red Cell Distribution Width 21.2 % (11.0-16.0); White Blood Count 9.1 X10*3/uL (4.8-10.8)
[2025-01-31 15:07] LABS: HCG Quantitative < 2 mIU/mL; TSH reflex Free T4 0.71 uIU/mL (0.32-4.0)
[2025-01-31 15:28] LABS: CT PCR NOT DETECTED (Not Detect.); NG PCR NOT DETECTED (Not Detect.)
[2025-02-01 04:54] LABS: Follicle Stimulating Hormone 7.8 mIU/mL; Lutenizing Hormone 4.4 mIU/mL
== END 2025-01-31 12:11 | disposition home or self-care (01) ==
LOC: HO.LNP 12:10
PROVIDERS: PCP Nurse Practitioner Family; Visit Provider Obstetrics & Gynecology
DX: R87.611 Atypical squamous cells cannot exclude high grade squamous intraepithelial lesion on cytologic smear of cervix (ASC-H) (principal); R87.618 Other abnormal cytological findings on specimens from cervix uteri; N93.9 Abnormal uterine and vaginal bleeding, unspecified; Z20.2 Contact with and (suspected) exposure to infections with a predominantly sexual mode of transmission; Z32.02 Encounter for pregnancy test, result negative; R42 Dizziness and giddiness; R53.1 Weakness
CPT/HCPCS: 57454; 58110; 81025; 83001; 83002; 84443; 84702; 85027; 87491; 87591; 88305

== ENCOUNTER 2025-01-31 15:08 | Emergency (ER) | payer OTHER, SELFPAY ==
[2025-01-31] VITALS (9 sets, daily range): BP systolic 110–139; BP diastolic 66–113; PULSE 73–90; RESP 14–100; TEMP 36.7–37.7; O2SAT 98–100; BMI 35.4
--- NOTE | 2025-01-31 15:30 | ED.GENADULT ---
HPI - General Adult General Chief complaint: General Medical Stated complaint: abnormal labs Time Seen by Provider: 01/31/25 15:59 Source: patient, RN notes reviewed and old records reviewed Mode of arrival: ambulatory Limitations: no limitations History of Present Illness ED Provider: Flakito Lewis PA-C HPI narrative: 44 y/o female with history of abnormal uterine bleeding, microcytic anemia, who presents to the ER from Dr. Gibbs's office for blood transfusion. She has been having symptomatic anemia with vaginal bleeding since January 19. She reports overall the vaginal bleeding has slowed down today. She was reporting some fatigue and weakness to doctors are be, she states she has had some exertional dyspnea as well. She was found to have a hemoglobin of 7.9 on lab work today, she was referred to the ER for blood transfusion. She has never required blood transfusion in the past. She is on iron supplements for iron deficiency anemia. She has a follow-up appointment Dr. Gibbs in the office in 3 days. she has been sent Provera to the pharmacy by Dr. Sai holly MD complaint: Symptomatic anemia Onset (ago): day(s) Pain Consistency: intermittent Relieving factors: rest Exacerbating factors: movement Associated symptoms: shortness of breath and weakness Treatments prior to arrival: none Related Data Previous Rx's ?Medication ?Instructions ?Recorded ferrous fumarate 325 mg (106 mg 325 mg PO BID 90 days #180 tabs 04/23/24 iron) tablet medroxyprogesterone 10 mg tablet 10 mg PO DAILY 90 days #90 tabs 01/31/25 (Provera) Allergies Allergy/AdvReac Type Severity Reaction Status Date / Time atorvastatin Allergy Mild Rash Verified 01/31/25 15:31 Review of Systems Review of Systems: Yes all other systems are reviewed and are negative [facility] Past Medical History Medical History Anemia Surgical History No pertinent past surgical history Family History Family History Maternal Aunt Breast cancer Mother High blood pressure Prediabetes Breast cancer Social History Social History Household Members Other:: son Housing: Apartment Alcohol intake: never Patient Tobacco Use Status: Never used Tobacco Smoked in Last 30 Days: No e-Cigarette/Vaping Use: Never Used Second Hand Smoke Exposure: No Use of substances other than those prescribed or required for medical reasons: No Advance Directives: No Advance Directives Information Provided: No Patient : No service: No Current occupational status: employed and student Cognitive needs: No Hearing needs: No Vision needs: No Physical Exam ED Vital Signs: Vital Signs - 24 hr 01/31/25 15:29 01/31/25 17:48 01/31/25 19:04 Temperature 99.8 F 98.3 F 98.4 F Pulse Rate 86 76 73 Respiratory Rate 18 14 15 Blood Pressure 110/68 139/72 135/75 Pulse Oximetry 99 99 100 Oxygen Delivery Method Room Air Room Air Room Air 01/31/25 19:22 01/31/25 19:37 01/31/25 19:43 Temperature 98.4 F 98.7 F 98.7 F Pulse Rate 90 75 76 Respiratory Rate 18 17 100 H Blood Pressure 134/75 137/81 137/81 Pulse Oximetry 98 Oxygen Delivery Method Room Air 01/31/25 20:51 01/31/25 22:01 Temperature 98.6 F 98.0 F Pulse Rate 83 82 Respiratory Rate 18 16 Blood Pressure 134/113 H 133/66 Pulse Oximetry 99 Oxygen Delivery Method Room Air BMI result Body Mass Index 35.4 Appearance: Alert. Oriented X3. No acute distress. HEENT: normal external inspection Neck: Normal inspection. Neck supple. CVS: Normal heart rate and rhythm. Pulses normal. Respiratory: No respiratory distress. Breath sounds normal. Abdomen: Soft and nontender. +BS x4 pelvic deferred Skin: Skin warm and dry. Normal skin color. Normal skin turgor. No rashes. Extremities: No lower extremity edema. No joint swelling. Neuro/psych: Oriented X 3. Grossly normal, nonfocal. Normal speech and cognition. Course Course Course Narrative: RME, this is a rapid medical exam performed by Jose Martin Lopez please refer to primary provider for complete H&P- 44-year-old female presents for evaluation of weakness and dizziness. The patient has had chronic vaginal bleeding which has been fairly controlled over last couple of days, she saw Dr. Gibbs this morning and had a hemoglobin of 7.9 and a hematocrit of 26.2. She was started on Provera, but doctors are be recommended 1 unit transfusion of packed red blood cells symptom control Reevaluation(s) Reevaluation #1: Yasmine Bowling PA-C: 945 pm: Patient was rec'd by me from sign out. She rec'd a blood transfusion in the ED following episode of acute anemia sent in by specialist that only requested one unit of blood with planned follow up. She was monitored here closely during blood transfusion with protocol followed. There were no complications. She will return for sxs. She was d/c to home stable. Medical Decision Making Medical Decision Making [facility] Narrative: 44-year-old female presenting to the ER for evaluation of symptomatic anemia. She is found to have a hemoglobin of 7.9 today. Her baseline hemoglobin is 10-11. She has had vaginal bleeding for the last 2 weeks and is symptomatic with weakness, exertional dyspnea and fatigue. Her vital signs are stable. Her overall vaginal bleeding has improved and is slowing down. She has consented for blood. Will plan to transfuse 1 unit of PRBCs and have her follow-up with doctors are be in the office. no need to repeat H/H post-transfusion. Patient agrees with plan Differential Diagnosis Differential Diagnoses: The differential diagnosis associated with the presentation includes Acute blood loss anemia from vaginal bleeding, GI bleeding, iron deficiency anemia, anemia of chronic disease Admission/Observation Consideration of admission/observation: Escalation of care including admission/observation considered Lab Data [facility] Lab Attestation statement: I reviewed the patient's lab results. Acute on chronic anemia 01/31/25 15:44 01/31/25 15:44 Labs: Lab Results 01/31/25 Range/Units 15:44 WBC 9.7 (4.8-10.8) X10*3/uL RBC 3.45 L (4.20-5.50) X10*6/uL Hgb 7.9 L (12.0-16.0) g/dl Hct 25.9 L (37.0-47.0) % MCV 75.1 L (80.0-98.0) fL MCH 22.9 L (27.0-33.0) pg MCHC 30.5 L (31.0-35.0) g/dl RDW 21.2 H (11.0-16.0) % Plt Count 287 (160-400) X10*3/uL MPV 10.3 (9.4-12.3) fL Immature Gran % (Auto) 0.4 (0.0-0.4) % Neut % (Auto) 62.2 (45-73) % Lymph % (Auto) 24.5 (20-40) % Webster % (Auto) 8.6 (2-11) % Eos % (Auto) 3.7 (0-4) % Baso % (Auto) 0.6 (0-2) % Lymph # (Auto) 2.4 (1.2-4.9) X10*3/uL Webster # (Auto) 0.8 (0.1-1.2) X10*3/uL Eos # (Auto) 0.4 (0.0-0.4) X10*3/uL Baso # (Auto) 0.1 (0.0-0.2) X10*3/uL Abs Immat Gran (auto) 0.04 H (0.00-0.03) X10*3/uL Absolute Neuts (auto) 6.1 (2.0-8.3) x10*3/uL Absolute Nucleated RBC 0.000 (0.0-0.012) X10*3/uL Nucleated RBC % (auto) 0.0 (0.0-0.2) /100WBC Sodium 141 (135-145) mmol/L Potassium 3.9 (3.3-5.1) mmol/L Chloride 111 H (96-108) mmol/L Carbon Dioxide 22 (22-29) mmol/L Anion Gap 12 (12-20) BUN 10 (9-16) mg/dL Creatinine 0.72 (0.5-1.4) mg/dL Estim Creat Clear Calc 116.1 Estimated GFR > 60 Random Glucose 106 (60-115) mg/dL Calcium 9.2 (8.4-10.2) mg/dL Total Bilirubin 0.1 (0.0-1.0) mg/dL AST 21 (5-31) U/L ALT 16 (0-31) U/L Alkaline Phosphatase 79 (39-117) U/L Total Protein 6.5 (6.5-8.0) g/dL Albumin 3.9 (3.5-5.0) g/dL Blood Type O Positive Antibody Screen NEGATIVE Crossmatch See Detail External Record Review External record reviewed: Office record and Prior outpatient labs Prescription Management I considered prescription management with: Other (ocp) Chronic Conditions Patient?s care impacted by: Other (anemia) Critical Care Time Critical Care Time Critical Care Time: Yes Total Critical Care Time: 30 Attestation: 30 minutes spent evaluating the patient, which may include speaking with prehospital personnel and family, interpreting studies, discussing the case with consultants or admitting teams, retrieving data and reviewing charts, documenting the visit, and performing bundled procedures independent of separately billed procedures such as blood transfusion.?? Discharge Plan Discharge Clinical Impression: Symptomatic anemia Patient Disposition: Home, Self-Care Instructions: Anemia (ED) Additional Instructions: you were given 1 unit of packed red blood cells today you should follow up in the office with Dr. Gibbs for repeat lab work take the medication he prescribed you as directed If you develop new or worsening symptoms call 911 or come back to the ER for further evaluation. Prescriptions: No Action medroxyprogesterone [Provera] 10 mg tablet 10 mg PO DAILY 90 Days Qty: 90 0RF Rx Instructions: start Provera 1 tablet daily ferrous fumarate 325 mg (106 mg iron) tablet 325 mg PO BID 90 Days Qty: 180 2RF Referrals: Emiliana Bettencourt FNP-BC [Primary Care Provider] - Eliceo Gibbs MD [Physician] - Interventions: ED Discharge Assessment Last Done: 01/31/25 22:18 Discharge Date/Time: 01/31/25 22:39 Print Language: Romanian
[2025-01-31 15:51] LABS: MANUAL DIFF FLAG NO
[2025-01-31 15:52] LABS: Basophils Absolute Auto 0.1 X10*3/uL (0.0-0.2); Basophils Percent Auto 0.6 % (0-2); Eosinophils Absolute Auto 0.4 X10*3/uL (0.0-0.4); Eosinophils Percent Auto 3.7 % (0-4); Hematocrit 25.9 % (37.0-47.0); Hemoglobin 7.9 g/dl (12.0-16.0); Imm Gran Abs Auto 0.04 X10*3/uL (0.00-0.03); Imm Gran Pct Auto 0.4 % (0.0-0.4); Lymphocytes Absolute Auto 2.4 X10*3/uL (1.2-4.9); Lymphocytes Percent Auto 24.5 % (20-40); Mean Corpuscular HGB Conc 30.5 g/dl (31.0-35.0); Mean Corpuscular Hemoglobin 22.9 pg (27.0-33.0); Mean Corpuscular Volume 75.1 fL (80.0-98.0); Mean Platelet Volume 10.3 fL (9.4-12.3); Monocytes Absolute Auto 0.8 X10*3/uL (0.1-1.2); Monocytes Percent Auto 8.6 % (2-11); Neutrophils Absolute Auto 6.1 x10*3/uL (2.0-8.3); Neutrophils Percent Auto 62.2 % (45-73); Platelet Count 287 X10*3/uL (160-400); Red Blood Count 3.45 X10*6/uL (4.20-5.50); Red Cell Distribution Width 21.2 % (11.0-16.0); White Blood Count 9.7 X10*3/uL (4.8-10.8)
[2025-01-31 16:10] LABS: Alanine Aminotransferase 16 U/L (0-31); Albumin Level 3.9 g/dL (3.5-5.0); Alkaline Phosphatase 79 U/L (39-117); Anion Gap 12 (12-20); Aspartate Amino Transferase 21 U/L (5-31); Bilirubin Total 0.1 mg/dL (0.0-1.0); Blood Urea Nitrogen 10 mg/dL (9-16); Calcium 9.2 mg/dL (8.4-10.2); Carbon Dioxide 22 mmol/L (22-29); Chloride 111 mmol/L (96-108); Creatinine Clr Calc Pharmacy 116.1; Estimated Glomerular Filt Rate > 60; Glucose Random 106 mg/dL (60-115); Potassium 3.9 mmol/L (3.3-5.1); Sodium 141 mmol/L (135-145); Total Protein 6.5 g/dL (6.5-8.0)
--- NOTE | 2025-01-31 17:51 | PC.NURSE ---
Patient presents to ED from Dr. Gibbs's office for blood transfusion. Patient reports having symptomatic anemia with vaginal bleeding. Denies dizziness, Denies pain, Denies pain. VSS and up to date. Patient awaiting blood transfusion. 22G in left hand and 20G in RAC. Plan of care on going
== END 2025-01-31 22:39 | disposition home or self-care (01) ==
PROVIDERS: Physician Assistant; Emergency Provider Emergency Medicine Emergency Medical Services; PCP Nurse Practitioner Family
DX: D50.9 Iron deficiency anemia, unspecified (principal); N93.9 Abnormal uterine and vaginal bleeding, unspecified; R53.83 Other fatigue; R53.1 Weakness
CPT/HCPCS: 36415; 36430; 80053; 85025; 85027; 86850; 86900; 86901; 86923; 99284; 99285; P9016

== ENCOUNTER 2025-02-04 11:00 | Outpatient (REF) | payer OTHER, SELFPAY ==
--- NOTE | ~2025-02-04 | US_ITS ---
CLINICAL HISTORY: N92.0 - Excessive and frequent menstruation with regular cycle US pelvis transabdominal and transvaginal with Doppler Comparison: None Findings: Transabdominal scanning performed for overall anatomy. Transvaginal scanning performed for additional detail. Uterus is 13 cm length. 3.7 x 3.2 x 3.5 cm fibroid. No endometrial lesion, 16 mm thickness. Right ovary 3.6 x 2.7 x 2.5 cm. Left ovary 2.2 x 1.2 x 2.1 cm. Normal color Doppler with arterial/venous spectral tracing of both ovaries. No free fluid. IMPRESSION: Uterus is enlarged with a possible uterine fibroid. Thickening of the endometrium. Unremarkable bilateral ovaries. This document has been electronically signed by: Jaky Dennison MD on 02/04/2025 16:39:30
== END 2025-02-04 11:01 | disposition home or self-care (01) ==
LOC: HO.US 11:00
PROVIDERS: PCP Nurse Practitioner Family; Visit Provider Advanced Practice Midwife
DX: N92.0 Excessive and frequent menstruation with regular cycle (principal); D50.8 Other iron deficiency anemias
CPT/HCPCS: 76830; 76856

== ENCOUNTER → 2025-02-04 11:03 | Outpatient (BNV) | payer OTHER, SELFPAY | PROVIDERS: PCP Nurse Practitioner Family; Visit Provider Nuclear Medicine | DX: N92.0 Excessive and frequent menstruation with regular cycle (principal) | CPT/HCPCS: 76830; 76856 ==

== ENCOUNTER 2025-02-06 14:50 | Outpatient (REF) | payer OTHER, SELFPAY ==
[2025-02-06 18:20] LABS: Hematocrit 28.9 % (37.0-47.0); Hemoglobin 8.8 g/dl (12.0-16.0); Mean Corpuscular HGB Conc 30.4 g/dl (31.0-35.0); Mean Corpuscular Hemoglobin 23.6 pg (27.0-33.0); Mean Corpuscular Volume 77.5 fL (80.0-98.0); Mean Platelet Volume 11.3 fL (9.4-12.3); Platelet Count 312 X10*3/uL (160-400); Red Blood Count 3.73 X10*6/uL (4.20-5.50); Red Cell Distribution Width 19.9 % (11.0-16.0); White Blood Count 10.9 X10*3/uL (4.8-10.8)
== END 2025-02-06 14:51 | disposition home or self-care (01) ==
LOC: HO.HKASLDS 14:50
PROVIDERS: Visit Provider Obstetrics & Gynecology
DX: N93.9 Abnormal uterine and vaginal bleeding, unspecified (principal)
CPT/HCPCS: 36415; 80053; 85025; 85027

== ENCOUNTER 2025-02-06 15:33 | Outpatient (AMB) | payer OTHER, SELFPAY ==
[2025-02-06 15:48] VITALS: BMI 34.4
--- NOTE | 2025-02-06 15:48 | A.OFFVIS_ITS ---
Vital Signs 02/06/25 15:48 Height 5 ft 6 in Weight 213 lb BMI 34.4 Intake Visit Reasons: follow up biopsy Allergies atorvastatin Allergy (Mild, Verified 01/31/25 15:31) Rash HPI Comments Details: The patient is presenting for follow-up to discuss the results of her abnormal uterine bleeding workup and options of treatment. The following workup was done.: H&H= 97.9/25.9, the patient was sent to emergency room received 1 unit of packed RBC and was started on Provera 10 mg p.o. q.d. repeat H&H today is still pending TSH, hCG, GC and chlamydia were negative. Endometrial biopsy was done Co testing was done was ascus-H HPV negative, with endometrial cells present Colpo biopsy ECC with endometrial biopsy pathology showed the following: A. Endometrium, biopsy: Inactive endometrium with breakdown; abundant blood; no atypia or hyperplasia identified. B. Endocervix, curettage: Fragments of endocervical mucosa and squamous epithelium within normal limits; no atypia identified. C. Cervix, 1 o'clock, biopsy: Squamous mucosa within normal limits; no endocervical epithelium identified; no atypia identified. D. Cervix, 6 o'clock, biopsy: Inflamed cervical transformation zone mucosa with reactive changes; no atypia identified. E. Cervix, 7 o'clock, biopsy: Squamous epithelium within normal limits; no endocervical epithelium identified; no atypia identified. F. Cervix, 11 o'clock, biopsy: Inflamed endocervical mucosa with reactive changes and squamous epithelium within normal limits; no atypia identified. G. Cervix, 12 o'clock, biopsy: Squamous and endocervical epithelium within normal limits; no atypia identified. COMMENT: The single atypical cells on the patient's recent Pap/cytology specimen ([id number]; ASCUS - cannot rule out high grade lesion, with negative HPV) are not definitively identified in the current samples Mammogram was done in 12/11 was BI-RADS 2 negative. Pelvic ultrasound showed the following: Transabdominal scanning performed for overall anatomy. Transvaginal scanning performed for additional detail. Uterus is 13 cm length. 3.7 x 3.2 x 3.5 cm fibroid. No endometrial lesion, 16 mm thickness. Right ovary 3.6 x 2.7 x 2.5 cm. Left ovary 2.2 x 1.2 x 2.1 cm. Normal color Doppler with arterial/venous spectral tracing of both ovaries. No free fluid. PFSH Medical History Anemia Surgical History No pertinent past surgical history Family History Maternal Aunt Breast cancer Mother High blood pressure Prediabetes Breast cancer Social History Household Members Other:: son Housing: Apartment Alcohol intake: never Patient Tobacco Use Status: Never used Tobacco e-Cigarette/Vaping Use: Never Used Second Hand Smoke Exposure: No service: No Current occupational status: employed and student Cognitive needs: No Hearing needs: No Vision needs: No Review of Systems Const All systems reviewed & are unremarkable except as noted in HPI and below Reports as per HPI and Reports no additional complaints GI Reports no additional complaints Reports no additional complaints Physical Exam Vital Signs: BMI result Body Mass Index 34.4 Assessment & Plan Assessment & Plan (1) Abnormal uterine bleeding: Comment: With anemia status post 1 unit of blood transfusion Code(s): N93.9 - Abnormal uterine and vaginal bleeding, unspecified Category: Medical Plan: Iron sulfate 325 mg p.o. t.i.d., recommended to stay on Provera 10 mg p.o. q.d. Discussed with the patient the results of the work up done and options of treatment including Lysteda, control pills, Mirena IUD, endometrial ablation and hysterectomy. All pros, cons, risks and benefits if each option was discussed with the patient and the patient decided to go ahead with definitive surgical management. Discussed with the patient the different types of hysterectomies including, vaginal, laparoscopic assisted vaginal, robotic assisted laparoscopic,& abdominal with BSO. All pros, cons, r/b of each approach were discussed the patient including evidence that morbidity is less and recovery is shorter with minimally invasive approaches to hysterectomy. Will refer the patient to [facility] minimally invasive piercing mill operator surgery for further manage. (2) Uterine myoma: Code(s): D25.9 - Leiomyoma of uterus, unspecified Category: Medical Plan: Discussed with the patient the findings on pelvic ultrasound & the risk of myosarcoma; in addition reviewed with the patient that malignancy and pre malignancy cannot be ruled out without hysterectomy for pathological evaluation ; furthermore, explained to the patient the limitation of pelvic ultrasound and endometrial biopsy in the setting. Discussed with the patient the typical symptoms that are caused by myomas including but not limited to pelvic pain, pressure symptoms, abnormal uterine bleeding. In addition discussed with the patient options of treatment for myomas including: Serial ultrasounds periodically to follow-up on the size of the myoma while targeting the treatment against fibroids related symptoms ( control pills, Mirena IUD, progesterone treatment, GnRH agonist/antagonist, uterine artery embolization or endometrial ablation) versus surgical treatment including hysterectomy . All pros and cons, risks and benefits of all options were discussed with the patient. And the patient decided to proceed with a hysterectomy refer to [facility] minimally invasive piercing mill operator surgery for further management (3) Pap smear of cervix with ASCUS, cannot exclude HGSIL: Comment: Endometrial cells present HPV negative Code(s): R87.611 - Atypical squamous cells cannot exclude high grade squamous intraepithelial lesion on cytologic smear of cervix (ASC-H) Category: Medical Plan: Discussed with the patient the colpo biopsy/ECC results with no evidence of high-grade FLACO, the sensitivity specificity and false-positive false-negative rate, were discussed with the patient. Options of treatment were discussed with the patient including co testing at 12 months versus diagnostic excision procedure. Since the patient is referred, will refer the management to [facility]. All questions answered, the patient verbalized understanding Instructed the patient to call our office back in case a referral appointment is not scheduled, missed or canceled so that we will assist on rescheduling another appointment, the patient verbalized understanding agreed with the plan. Coding Level of Care Code Est Pt Level 3 (59695) Diagnoses Abnormal uterine bleeding N93.9 Uterine myoma D25.9 Pap smear of cervix with ASCUS, cannot exclude HGSIL R87.611
== END 2025-02-06 16:25 | disposition home or self-care (01) ==
LOC: HO.HWS 15:33
PROVIDERS: PCP Nurse Practitioner Family; Visit Provider Obstetrics & Gynecology
DX: N93.9 Abnormal uterine and vaginal bleeding, unspecified (principal); D25.9 Leiomyoma of uterus, unspecified; R87.611 Atypical squamous cells cannot exclude high grade squamous intraepithelial lesion on cytologic smear of cervix (ASC-H)
CPT/HCPCS: 99213

== ENCOUNTER 2025-03-11 09:50 | Outpatient (AMB) | payer OTHER, SELFPAY ==
[2025-03-11 09:55] VITALS: BP 144/72; PULSE 71; O2SAT 98; BMI 35.1
--- NOTE | 2025-03-11 09:55 | MHC.OFFVIS ---
Vital Signs 03/11/25 09:55 Height 5 ft 6 in Weight 217 lb 9.54 oz BMI 35.1 BP 144/72 H Blood Pressure Location Lt brachial Position Sitting Pulse 71 Pulse Source Pulse Oximeter Pulse Oximetry (%) 98 Oxygen Delivery Method Room Air Intake Visit Reasons: Iodine-deficiency related diffuse (endemic) goiter Intake Note: New patient present today for Iodine-deficiency related diffuse (endemic) goiter. Shearing Supervisor Required: No Accompanied by: Self / Same As Patient Allergies atorvastatin Allergy (Mild, Verified 03/11/25 09:58) Rash Medication List - Last Reconciled 03/11/25 by Sapna Palafox MD ferrous fumarate 325 mg PO BID 90 days medroxyprogesterone (Provera) 10 mg PO DAILY 90 days HPI Comments Details: 44-year-old female coming in today for initial evaluation of nontoxic multinodular goiter. She was having b/l neck pain for a year or two which lead to the following evaluation. Pain worsened with neck movements. Massaging makes it better and keeping still. Its intermittent. frequecy 2-3 times a day , last for an hour, self resolves with rest. 11/07/2024: Ultrasound of the thyroid, I reviewed the images myself which showed a right isthmus subcentimeter mixed cystic solid hypoechoic TR 2 category nodule, a left mid lobe 0.5 cm solid hypoechoic TR 3 category nodule, a left lower pole 0.8 cm solid hyperechoic nodule with comet tail artifacts, TR 3 nodule. Normal-appearing lymph nodes noted. CT soft tissue neck from December 2024, I reviewed the images myself which pointed towards an exophytic isthmus thyroid nodule. When I go back to the ultrasound images, it seems like she has possibly a pyramidal lobe of the thyroid gland which is a normal anatomic variant. This is not an exophytic nodule. Patient currently denies heat or cold intolerance, diarrhea or constipation, hair loss, palpitation, anxiety, weight changes, mood changes, low energy, changes in appearance of eyes or vision changes, tremors, increased diaphoresis or dry skin. ? Patient denies any difficulty swallowing, pain on swallowing or voice changes or difficulty breathing. Patient denies any history of childhood neck radiation. Denies having ever used lithium, amiodarone or biotin supplements. Patient denies any family history of thyroid cancer or thyroid disease. Physical exam General: sitting comfortably in no acute distress HEENT: normocephalic/atraumatic, moist oral mucosa Neck: supple, symmetrical, prominent thyroid Cardiac: normal heart sounds Pulm: normal breath sounds B/L, no added breath sounds Abd: not distended, no tenderness Extremities: no edema, no signs of myxedema Neuro: AAO x3, Speech: normal, no facial droop, moving all 4 extremities Laboratory Tests 10/21/23 01/31/25 11:30 13:[address] soft tissue neck with contrast 01/08/25 Comparison: None Findings: Homogeneous but enlarged thyroid gland. Homogeneous nodule protrudes anterior to isthmus. No further assessment is possible on CT. Recommend follow-up thyroid ultrasound. Tonsils, adenoids and epiglottis are within normal limits. There is no prevertebral soft tissue swelling or fluid. Bilateral parotid and submandibular glands unremarkable. No significant adenopathy in the neck by size criteria. Airway midline without deviation or displacement. No foreign bodies are demonstrated. Visualized upper lungs and sinuses are clear. No acute bony abnormalities demonstrated. Impression: Enlarged thyroid with exophytic isthmus nodule Recommend follow-up thyroid ultrasound This document has been electronically signed by: Wayne Regalado MD on 01/08/2025 20:25:20 EXAMINATION: US THYROID 11/07/2024 HISTORY: E01.0 - Iodine-deficiency related diffuse (endemic) goiter TECHNIQUE: Real-time grayscale ultrasound imaging was performed and images were reviewed. COMPARISON: There are no prior studies for comparison. FINDINGS: SIZE: The right thyroid lobe measures 6.6 x 1.9 x 2.4 cm. The left thyroid lobe measures 5.6 x 2.2 x 2.1 cm. The isthmus measures 9 mm. FLOW: Flow to the gland is normal. ECHOGENICITY: The echotexture of the gland is homogeneous. NODULES: Multiple subcentimeter nodules are noted as described below: Nodule #: 1 Location: Right isthmus measuring 7 x 2 x 4 mm Shape: Wider than tall (0 points) Margins: Smooth (0 points) Echotexture: Hyperechoic (1 point) Composition: Mixed (1 point) Calcifications: None (0 points) Total points: 2 TIRADS: TR2: Not suspicious Nodule #: 2 Location: Midportion of the left thyroid lobe measuring 5 x 3 x 4 mm Shape: Wider than tall (0 points) Margins: Smooth (0 points) Echotexture: Hyperechoic (1 point) Composition: Solid (2 points) Calcifications: None (0 points) Total points: 3 TIRADS: TR3: Mildly suspicious. Nodule #: 3 Location: Lower pole of the left thyroid lobe measuring 8 x 5 x 7 mm Shape: Wider than tall (0 points) Margins: Smooth (0 points) Echotexture: Hyperechoic (1 point) Composition: Mostly solid (2 points) Calcifications: Comet tail (0 points) Total points: 3 TIRADS: TR3: Mildly suspicious. Incidental note is made of multiple normal sized lymph nodes in the right neck at the area of pain. US/US thyroid IMPRESSION: 1. Subcentimeter bilateral thyroid nodules as described. 2. Possible normal sized lymph nodes are seen in the right neck in the region of the patient's pain. [facility] Medical History (Updated 03/11/25 @ 10:25 by Sapna Palafox MD) Multinodular goiter (nontoxic) Anemia Surgical History No pertinent past surgical history Family History Maternal Aunt Breast cancer Mother High blood pressure Prediabetes Breast cancer Social History Household Members Other:: son Housing: Apartment Alcohol intake: never Patient Tobacco Use Status: Never used Tobacco e-Cigarette/Vaping Use: Never Used Second Hand Smoke Exposure: No service: No Current occupational status: employed and student Cognitive needs: No Hearing needs: No Vision needs: No Physical Exam Vital Signs: Last Vital Signs Pulse 71 03/11/25 09:55 BP 144/72 H 03/11/25 09:55 Pulse Ox 98 03/11/25 09:55 Oxygen Delivery Method Room Air 03/11/25 09:55 BMI result Body Mass Index 35.1 Assessment & Plan Assessment & Plan (1) Multinodular goiter (nontoxic): Code(s): E04.2 - Nontoxic multinodular goiter Category: Medical Plan: 44-year-old female coming in today for initial evaluation of nontoxic multinodular goiter. She was having b/l neck pain for a year or two which lead to the following evaluation. Pain worsened with neck movements. Massaging makes it better and keeping still. Its intermittent. frequecy 2-3 times a day , last for an hour, self resolves with rest. 11/07/2024: Ultrasound of the thyroid, I reviewed the images myself which showed a right isthmus subcentimeter mixed cystic solid hypoechoic TR 2 category nodule, a left mid lobe 0.5 cm solid hypoechoic TR 3 category nodule, a left lower pole 0.8 cm solid hyperechoic nodule with comet tail artifacts, TR 3 nodule. Normal-appearing lymph nodes noted. CT soft tissue neck from December 2024, I reviewed the images myself which pointed towards an exophytic isthmus thyroid nodule. When I go back to the ultrasound images, it seems like she has possibly a pyramidal lobe of the thyroid gland which is a normal anatomic variant. This is not an exophytic nodule. At this point none of her nodules meet criteria for follow up and are very low risk appearing. She does not have any compressive symptoms. Normal thyroid function from January 2025. Her neck pain based on history appears very muscular in nature. She has normal-appearing lymph nodes in the neck. No areas of concerns. I have asked her to discuss with the primary care regarding neck pain evaluation. No need for further repeat imaging of her thyroid unless she has any clinical changes such as difficulty swallowing, changes in her voice or enlargement of nodules on exam. She does not need endocrinology follow up with me. Plan See above Coding Level of Care Code New Pt Level 3 (63067) Diagnoses Multinodular goiter (nontoxic) E04.2
== END 2025-03-11 10:23 | disposition home or self-care (01) ==
LOC: HO.ENCR 09:51
PROVIDERS: PCP Nurse Practitioner Family; Visit Provider Student in an Organized Health Care Education/Training Program
DX: E04.2 Nontoxic multinodular goiter (principal)
CPT/HCPCS: 99203

== ENCOUNTER 2025-03-15 08:06 | Outpatient (AMB) | payer OTHER, SELFPAY ==
--- NOTE | 2025-03-15 08:12 | A.OFFVIS_ITS ---
Vital Signs 03/15/25 08:22 Height 5 ft 6 in Weight 213 lb BMI 34.4 BP 125/68 Blood Pressure Location Lt brachial Position Sitting Pulse 73 Pulse Oximetry (%) 97 Oxygen Delivery Method Room Air Intake Visit Reasons: Una screening. Intake Note: Patient new consult for 1st pre Colonoscopy. Patient cc: hx of hemorrhoids, and dizziness come and go due heavy menstrual periods, patient is taking Iron. Denies any other GI issues. Senior Architect Required: No Accompanied by: Self / Same As Patient Allergies atorvastatin Allergy (Mild, Verified 03/15/25 08:12) Rash Medication List - Last Reconciled 03/15/25 by Mary Ann Grider CNP bisacodyl 5 mg PO ONCE 1 day ferrous fumarate 325 mg PO BID 90 days medroxyprogesterone (Provera) 10 mg PO DAILY 90 days polyethylene glycol 3350 (Miralax) 238 grams PO ONCE polyethylene glycol 3350 (Miralax) 17 grams PO DAILY 30 days HPI HPI Una screening.: Details: Patient is a 44-year-old female with PMH of ENDER and dyslipidemia. Referred by PCP for pre colonoscopy screening. This will be Amanda's 1st colonoscopy. She reports having a bowel movement approximately three times a week. She experiences bright red blood in her stools for several years, observed both during wiping and in the toilet. She has a known history of hemorrhoids but is not currently experiencing a flare. She also noted occasional abdominal pain after consuming dairy products, which she believes she did this AM. Outside of these episodes, she does not struggle with ongoing abdominal pain. No nausea, vomiting, heartburn, or trouble swallowing were reported. Patient denies: fever/chills, n/v, appetite changes, regurgitation or unintentional wt loss. 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 PFSH Medical History (Updated 03/15/25 @ 09:46 by Mary Ann Grider CNP) Constipation Colon cancer screening Multinodular goiter (nontoxic) Anemia Surgical History No pertinent past surgical history Family History Maternal Aunt Breast cancer Mother High blood pressure Prediabetes Breast cancer Social History Household Members Other:: son Housing: Apartment Alcohol intake: never Patient Tobacco Use Status: Never used Tobacco e-Cigarette/Vaping Use: Never Used Second Hand Smoke Exposure: No service: No Current occupational status: employed and student Cognitive needs: No Hearing needs: No Vision needs: No Review of Systems Const Reports as per HPI ENT Reports as per HPI Card Reports as per HPI Resp Reports as per HPI GI Reports as per HPI Reports as per HPI Physical Exam Vital Signs: Last Vital Signs Pulse 73 03/15/25 08:22 BP 125/68 03/15/25 08:22 Pulse Ox 97 03/15/25 08:22 Oxygen Delivery Method Room Air 03/15/25 08:22 BMI result Body Mass Index 34.4 Const General: healthy appearing, no acute distress and well developed Nutritional Appearance: well nourished Orientation/consciousness: patient oriented x3 HEENT Head: Yes normal to inspection, Yes normocephalic and Yes atraumatic Face and sinus: Yes normal facial exam Eyes General: appearance normal, both eyes and all related structures Neck Neck: Yes normal visual inspection Resp Effort & Inspection: normal respiratory effort, able to speak in complete sentences, no tracheal deviation and symmetric chest movement Auscultation: clear to auscultation bilaterally Cardio Jugular venous distension: no JVD Rate: regular rate Rhythm: regular rhythm Heart sounds: S1 normal heart sound present, S2 normal heart sound present, no gallops and no murmurs GI Inspection: Yes normal to inspection, No distended, Yes obesity and Yes striae Palpation (GI): Soft to palpation, not firm, nontender and No hepatosplenomegaly present Auscultation: normal bowel sounds Neuro General: patient oriented x3 Gait exam (Neuro): Normal gait present Psych Appearance: grossly normal Mental Status: mental status grossly normal Speech and movement: Normal speech and movement present Affect: normal affect Attitude: cooperative Thought process: Normal thought process present Thought content: Normal thought content present Insight: Good insight present (Psych) Judgement: Good judgement present (Psych) Assessment & Plan Assessment & Plan (1) Colon cancer screening: Code(s): Z12.11 - Encounter for screening for malignant neoplasm of colon Category: Medical Plan: Due for index screening colonoscopy + rectal bleeding. Medications: -prescriptions for laxative tablets and MiraLax sent to pharmacy; instructions for Gatorade purchase and clear liquid diet given. patient educated on scheduling process, procedure preparation, including avoiding certain foods and ensuring clear liquid intake Advised on necessity for ride post-procedure due to sedation. (2) Iron deficiency anemia: Code(s): D50.9 - Iron deficiency anemia, unspecified Category: Medical Qualifiers: Iron deficiency anemia type: other iron deficiency Qualified Code(s): D50.8 - Other iron deficiency anemias Plan: History of heavy menstrual cycles, chronic dizziness on iron supplementation. Additional Tests: None at this time; coordinate with current hospitalist program director and monitor iron levels Medications: Continue current iron supplement as directed by hospitalist program director Lifestyle Modifications: Ensure adequate hydration, nutrition and advised slow position change yet with the the 1 that you workup for I sent you autoimmune this is a 2 year Follow-Up: Regular check-ups with hospitalist program director; pending appointment with surgeon for potential hysterectomy (3) Constipation: Code(s): K59.00 - Constipation, unspecified Category: Medical Qualifiers: Constipation type: unspecified constipation type Qualified Code(s): K59.00 - Constipation, unspecified Plan: Patient reports infrequent bowel movements, bright red blood in stools, and a history of hemorrhoids. Additional Tests: None at this time; monitor symptoms Medications: -Miralax oral daily for bowel regulation Reinforced lifestyle modifications to promote regularity: -higher fiber diet, examples provided -adequate hydration with water -150 minutes of moderate intensity exercise per week Plan Follow-up after colonoscopy or sooner as needed Time: I spent a total of 31 minutes on the date of encounter which includes: Preparing to see the patient (reviewed previous documentation, test results and medical history) Performing a medically appropriate exam and/or evaluation Ordering medications, tests, and procedures Documenting clinical information in the health record Medications: New bisacodyl Take four tablets once for 1 day per colonoscopy instructions 5 mg PO ONCE 4 tabs 0RF 1 day polyethylene glycol 3350 (Miralax) per colonoscopy prep instructions 238 grams PO ONCE 238 grams 0RF polyethylene glycol 3350 (Miralax) Take 17G (one cap full) daily with 8oz of water 17 grams PO DAILY 510 grams 2RF constipation 30 days Coding Level of Care Code New Pt New Pt Level 3 (33586) Patient Type New Diagnoses Colon cancer screening Z12.11 Other iron deficiency anemia D50.8 Iron deficiency anemia type: other iron deficiency Constipation, unspecified constipation type K59.00 Constipation type: unspecified constipation type
[2025-03-15 08:22] VITALS: BP 125/68; PULSE 73; O2SAT 97; BMI 34.4
== END 2025-03-15 08:46 | disposition home or self-care (01) ==
LOC: HO.HGI 08:07
PROVIDERS: PCP Nurse Practitioner Family; Visit Provider Nurse Practitioner Family
DX: Z01.818 Encounter for other preprocedural examination (principal); Z12.11 Encounter for screening for malignant neoplasm of colon; D50.8 Other iron deficiency anemias; K59.00 Constipation, unspecified
CPT/HCPCS: S0285

== ENCOUNTER 2025-04-03 15:09 | Outpatient (AMB) | payer OTHER, SELFPAY ==
--- NOTE | 2025-04-03 15:10 | A.OFFVIS_ITS ---
Intake Visit Reasons: Follow up Allergies atorvastatin Allergy (Mild, Verified 03/15/25 08:12) Rash HPI Comments Details: The patient schedule an appointment for follow. The patient is doing well on Provera 10 mg p.o. q.d.. The following workup was done.: H&H= 8.8/28.9 in 02/10 TSH, hCG, GC and chlamydia were negative. Endometrial biopsy was done Co testing was done was ascus-H HPV negative, with endometrial cells present Colpo biopsy ECC with endometrial biopsy pathology showed the following: A. Endometrium, biopsy: Inactive endometrium with breakdown; abundant blood; no atypia or hyperplasia identified. B. Endocervix, curettage: Fragments of endocervical mucosa and squamous epithelium within normal limits; no atypia identified. C. Cervix, 1 o'clock, biopsy: Squamous mucosa within normal limits; no endocervical epithelium identified; no atypia identified. D. Cervix, 6 o'clock, biopsy: Inflamed cervical transformation zone mucosa with reactive changes; no atypia identified. E. Cervix, 7 o'clock, biopsy: Squamous epithelium within normal limits; no endocervical epithelium identified; no atypia identified. F. Cervix, 11 o'clock, biopsy: Inflamed endocervical mucosa with reactive changes and squamous epithelium within normal limits; no atypia identified. G. Cervix, 12 o'clock, biopsy: Squamous and endocervical epithelium within normal limits; no atypia identified. COMMENT: The single atypical cells on the patient's recent Pap/cytology specimen ([id number]; ASCUS - cannot rule out high grade lesion, with negative HPV) are not definitively identified in the current samples Mammogram was done in 12/11 was BI-RADS 2 negative. Pelvic ultrasound showed the following: Transabdominal scanning performed for overall anatomy. Transvaginal scanning performed for additional detail. Uterus is 13 cm length. 3.7 x 3.2 x 3.5 cm fibroid. No endometrial lesion, 16 mm thickness. Right ovary 3.6 x 2.7 x 2.5 cm. Left ovary 2.2 x 1.2 x 2.1 cm. Normal color Doppler with arterial/venous spectral tracing of both ovaries. No free fluid. [facility] Medical History Constipation Colon cancer screening Multinodular goiter (nontoxic) Anemia Surgical History No pertinent past surgical history Family History Maternal Aunt Breast cancer Mother High blood pressure Prediabetes Breast cancer Social History Household Members Other:: son Housing: Apartment Alcohol intake: never Patient Tobacco Use Status: Never used Tobacco e-Cigarette/Vaping Use: Never Used Second Hand Smoke Exposure: No service: No Current occupational status: employed and student Cognitive needs: No Hearing needs: No Vision needs: No Review of Systems Const All systems reviewed & are unremarkable except as noted in HPI and below Reports as per HPI and Reports no additional complaints GI Reports no additional complaints Reports no additional complaints Telehealth Telehealth Telehealth Platform: Telephone Location of provider rendering services: practice address Location of patient: address on file Patient Identification confirmed using: Name, : Yes Telehealth method: video Patient verbally consented to treatment: Yes Patient verbally consented to billing insurance company: Yes Patient informed of any privacy concerns related to visit: Yes Minutes spent on Phone/Video with Pt.: 5 Assessment & Plan Assessment & Plan (1) Uterine myoma: Code(s): D25.9 - Leiomyoma of uterus, unspecified Category: Medical Plan: Discussed with the patient the typical symptoms that are caused by myomas including but not limited to pelvic pain, pressure symptoms, abnormal uterine bleeding. In addition discussed with the patient options of treatment for myoma s including: Serial ultrasounds periodically to follow-up on the size of the myoma while targeting the treatment against fibroids related symptoms ( control pills, Mirena IUD, progesterone treatment, GnRH agonist/antagonist, uterine artery embolization or endometrial ablation) versus surgical treatment including hysterectomy . All pros and cons, risks and benefits of all options were discussed with the patient. The patient understands that delay in surgical treatment in case of myosarcoma can affect her prognosis, after further discussion, the patient decided to proceed with definitive surgical management, hysterectomy. the patient was referred minimally invasive image processing engineer surgery at [facility] , appointment scheduled on 04/22, the patient is aware of the appointment (2) Abnormal uterine bleeding: Comment: With anemia status post 1 unit of blood transfusion Code(s): N93.9 - Abnormal uterine and vaginal bleeding, unspecified Category: Medical Plan: Instructions given the patient to have CBC done, keep taking iron sulfate with Provera daily and keep her appointment on for an invasive hysterectomy. All questions answered, the patient verbalized understanding (3) Pap smear of cervix with ASCUS, cannot exclude HGSIL: Comment: Endometrial cells present HPV negative Code(s): R87.611 - Atypical squamous cells cannot exclude high grade squamous intraepithelial lesion on cytologic smear of cervix (ASC-H) Category: Medical Plan: The patient was referred to [facility] for minimally invasive image processing engineer surgery, appointment scheduled on 04/22/2025, the patient is aware . I spent a total of 20 minutes reviewing the chart, talking to the patient via video and documenting in the medical record. Orders: Orders Complete Blood Count no Diff Today N93.9 - Abnormal uterine and vaginal bleeding, unspecified Coding Level of Care Code Tele Est Pt Level 3 (51374) Diagnoses Uterine myoma D25.9 Abnormal uterine bleeding N93.9 Pap smear of cervix with ASCUS, cannot exclude HGSIL R87.611
== END 2025-04-03 18:27 ==
LOC: HO.HWS 15:09
PROVIDERS: PCP Nurse Practitioner Family; Visit Provider Obstetrics & Gynecology
DX: D25.9 Leiomyoma of uterus, unspecified (principal); N93.9 Abnormal uterine and vaginal bleeding, unspecified; R87.611 Atypical squamous cells cannot exclude high grade squamous intraepithelial lesion on cytologic smear of cervix (ASC-H)
CPT/HCPCS: 99213

== ENCOUNTER 2025-04-05 15:09 | Outpatient (REF) | payer OTHER, SELFPAY ==
[2025-04-05 16:11] LABS: Hematocrit 33.8 % (37.0-47.0); Hemoglobin 10.7 g/dl (12.0-16.0); Mean Corpuscular HGB Conc 31.7 g/dl (31.0-35.0); Mean Corpuscular Hemoglobin 24.0 pg (27.0-33.0); Mean Corpuscular Volume 75.8 fL (80.0-98.0); NRBC Abs Auto 0.000 X10*3/uL (0.0-0.012); NRBC Pct Auto 0.0 /100WBC (0.0-0.2); Platelet Count 206 X10*3/uL (160-400); Red Blood Count 4.46 X10*6/uL (4.20-5.50); White Blood Count 8.8 X10*3/uL (4.8-10.8)
[2025-04-05 16:43] LABS: Alanine Aminotransferase 19 U/L (0-31); Albumin Level 4.3 g/dL (3.5-5.0); Alkaline Phosphatase 80 U/L (39-117); Anion Gap 10 (12-20); Aspartate Amino Transferase 25 U/L (5-31); Blood Urea Nitrogen 9 mg/dL (9-16); Calcium 9.4 mg/dL (8.4-10.2); Carbon Dioxide 24 mmol/L (22-29); Chloride 111 mmol/L (96-108); Cholesterol 217 mg/dL (<200); Estimated Glomerular Filt Rate > 60; HDL Cholesterol 50 mg/dL (>40); Iron 95 mcg/dL (30-160); Percent Iron Saturation 29 % (15-50); Potassium 3.7 mmol/L (3.3-5.1); Sodium 141 mmol/L (135-145); Total Iron Binding Capacity 330 mcg/dL (228-428); Total Protein 6.7 g/dL (6.5-8.0); Triglycerides 131 mg/dL (<150); Unsaturated Iron Binding 235 ug/dL
== END 2025-04-05 15:10 | disposition home or self-care (01) ==
LOC: HO.LAB 15:09
PROVIDERS: PCP Nurse Practitioner Family; Visit Provider Obstetrics & Gynecology
DX: E78.2 Mixed hyperlipidemia (principal); D50.8 Other iron deficiency anemias; E01.0 Iodine-deficiency related diffuse (endemic) goiter; N93.9 Abnormal uterine and vaginal bleeding, unspecified
CPT/HCPCS: 36415; 80053; 80061; 83540; 84443; 85027

== ENCOUNTER 2025-04-26 08:11 | Outpatient (AMB) | payer OTHER, SELFPAY ==
--- NOTE | 2025-04-26 07:29 | A.OFFPC_ITS ---
Intake Visit Reasons: 6 mo with labs 1 week before anemia HLD thyroid Allergies atorvastatin Allergy (Mild, Verified 04/26/25 08:46) Rash Medication List - Last Reconciled 04/26/25 by ANURAG Barth- bisacodyl 5 mg PO ONCE 1 day ferrous fumarate 325 mg PO BID 90 days magnesium oxide 400 mg PO BEDTIME medroxyprogesterone (Provera) 10 mg PO DAILY 90 days polyethylene glycol 3350 (Miralax) 238 grams PO ONCE polyethylene glycol 3350 (Miralax) 17 grams PO DAILY 30 days Tobacco use date assessed: 10/26/24 Dental Screening Dental Screen Date: 10/26/24 HPI HPI Comments History of Present Illness Details 44 y/o F with Iron Def anemia, obesity, HLD, Obesity, benign thyroid nodules, chronic neck pain Family hx: reports no change No hospital visits last year Surgery: None Health Maintenance: Immunizations: Tdap, flu UTD Mammogram [place]11/2024 [place] [facility] [place]a still getting periods Colon: [place] the [place] [facility] [place] CONDOMINIUM MANAGER [place] [facility] [place] reviewed: Endo 02/2025 Her neck pain based on history appears very muscular in nature. She has normal-appearing lymph nodes in the neck. No areas of concerns. I have asked her to discuss with the primary care regarding neck pain evaluation. No need for further repeat imaging of her thyroid unless she has any clinical changes such as difficulty swallowing, changes in her voice or enlargement of nodules on exam. She does not need endocrinology follow up with me. CONDOMINIUM MANAGER 03/2025 Uterine Myoma: the patient was referred minimally invasive electroneurodiagnostic technologist surgery at [facility] , appointment scheduled on 04/22, the patient is aware of the appointment History of Present Illness - The patient is a 44-year-old female pr esenting for routine fu: - Iron def anemia. - Improved Hb from 7-8 to 10. - Associated menorrhagia. - Scheduled for Hysterectomy 06/11/25 at [facility] - cont on Iron supplements - Had consult w/ gI for colon; has not h eard about a date for colon yet. - Hyperlipidemia with increasing LDL fro m 129 to 141; statin intolerant. - Neck pain due to muscular origin, prev iously assessed via endo ruling out any thyroid cause for her sx. They remain the same. Here today for preoperative clearance. Surgery Type: HYSTERECTOMY Anesthesia Type: GENERAL Surgeon: Date: 06/11/25 Any past surgical procedures: NO Any complications from anesthesia or in post-op period: N/A ASA or NSAID Use: NO Current smoker: NO Alcohol use: NO Drug use: NO METs: 4 climb flight of stairs, golf, walk, yardwork Medical history: Asthma NO COPD NO Obesity BMI 34.4 Diabetes NO DE < 6 weeks, unstable angina, CHF, severe valve disease: NO RCRI is Class 1 Risk Stratification: 1.1% Review of Systems - Hematologic: Reports anemia. - Cardiovascular: Denies symptoms except for increasing LDL. - Musculoskeletal: Reports neck pain. - Endocrine: Reports thyroid nodules, de nies thyroid function abnormalities. - Reproductive: Reports menorrhagia. - General: Denies other symptoms. Limited physical exam was conducted Awake alert NAD Speaking in full sentences Engaging, appropriate Skin pink warm and dry Mood and affect appropriate Results: see below - Labs: Hemoglobin level improved to 10. - Tests: Increased LDL cholesterol from 129 to 141. - Diagnostics: Thyroid ultrasound and CA T scan showed non-concerning small nodules, no biopsy indicated. Discussion Notes I discussed with the patient her current state of anemia, noting the improvement in hemoglobin levels due to iron supplementation and recent transfusions. We reviewed her upcoming surgery to address the menorrhagia that has contributed to her anemia. We deliberated the complications of her hyperlipidemia, highlighting her intolerance to statins, and I proposed trialing Zetia as a non- statin alternative, post-surgery. We also discussed dietary modifications with a referral to a muffler tender to manage hyperlipidemia. Regarding her neck pain, we ruled out thyroid gland issues and considered muscular origins; I suggested possible interventions such as magnesium supplements, physical therapy, and massage therapy. We arranged for future follow-up and ensured consent for ongoing and any additional procedures necessary. Patient was given time to ask questions. All questions were answered to their satisfaction. Assessment and Plan 1. Anemia - Continue iron supplements, plan for hy sterectomy as scheduled - Monitor hemoglobin. 2. Hyperlipidemia - Trial Zetia post-surgery. - Tax Accounting Manager referral for diet. - Lifestyle Mods 3. Muscle neck pain - Declined physical therapy, massage the rapy. - Trial Magnesium oxide 400 mg at bedtim e. Hold for diarrhea/GI upset. 4. Pre-op: Pt is medically cleared to pr oceed w/ hysterectomy. If EKG is needed; this has been ordered as outpatient and results pending. Labs are up to date. Patient Instructions - Take the prescribed iron and magnesium supplements as directed. - Prepare for the upcoming surgery - Follow dietary recommendations from [facility] muffler tender. - Monitor for side effects from magnesiu m, stop if diarrhea occurs. - RTO Oct for CPE, sooner PRN Telehealth Attestation The patient has been explained that this is an interactive (audio/video) telehealth encounter and what that consists of. The patient understands and wishes to proceed. InfoHubble platform was used. Consent Patient was informed and verbally consented to the use of an ambient scribe for clinic note documentation during this visit. Total time spent caring for the patient today was 40 minutes. This includes time spent before the visit reviewing the chart, time spent during the visit, and time spent after the visit on documentation, reviewing laboratory results, diagnostic imaging, medications, performing a medically necessary evaluation, counseling on diagnoses, care coordination, ordering appropriate tests, ordering appropriate medications, review of tests performed by other providers, reporting test results with the patient, communication with other healthcare providers. [facility] Medical History Constipation Colon cancer screening Multinodular goiter (nontoxic) Anemia Surgical History No pertinent past surgical history Family History Maternal Aunt Breast cancer Mother High blood pressure Prediabetes Breast cancer Social History Household Members Other:: son Housing: Apartment Alcohol intake: never Patient Tobacco Use Status: Never used Tobacco e-Cigarette/Vaping Use: Never Used Second Hand Smoke Exposure: No service: No Current occupational status: employed and student Cognitive needs: No Hearing needs: No Vision needs: No Questionnaire Thrive Questionnaire Date Thrive assessed: 10/19/24 I am a: Patient What is your living situation today?: I have a steady place to live Within the past 12 months, did the food you bought not last and you didn't have the money to get more?: Never true Within the past 12 months, did you worry whether your food would run out before you got money to buy more?: Sometimes True Do you have trouble paying for medicines?: No Do you have trouble getting transportation to medical appointments?: No Do you have trouble paying your heating and electricity bill?: No Do you have trouble taking care of your child, family member or friend?: No Do you have trouble with day-to-day activities such as bathing, preparing meals, shopping, managing finances, etc.?: No Are you currently unemployed and looking for a job?: No Are you interested in more education?: No Please select the resources that you would like help with: None Currently or been in a relationship where the following occur: No concerns reported THRIVE Score: 1 WAYLON-7 AMB Questionnaire WAYLON-7 Date WAYLON - 7 assessed: 10/26/24 Source: Developed by Drs. Nathan Luke, Sonal Hernandez, Iam Hernandez and colleagues, with an educational leda from [facility]. Physical exam (Primary Care) Tobacco/Smoking Status: Tobacco use Status Tobacco use date assessed 10/26/24 04/26/25 07:30 Patient Tobacco Use Status Never used Tobacco 04/26/25 07:30 e-Cigarette/Vaping Use Never Used 04/26/25 07:30 Thrive Assessment: Date of Thrive Assessment Date Thrive assessed 10/19/24 04/26/25 07:30 Currently or been in a relationship where the following occur: No concerns reported Telehealth Telehealth Telehealth Platform: [facility] Location of provider rendering services: practice address Location of patient: address on file Patient Identification confirmed using: Name, : Yes Telehealth method: video Patient verbally consented to treatment: Yes Patient verbally consented to billing insurance company: Yes Patient informed of any privacy concerns related to visit: Yes Minutes spent on Phone/Video with Pt.: 13 Results Reviewed Results Reviewed: 04/05/25 Laboratory Result Units Range Interpretation Provider Comments White Blood Count 8.8 X10*3/uL (4.8-10.8) Red Blood Count 4.46 X10*6/uL (4.20-5.50) Hemoglobin 10.7 g/dl (12.0-16.0) Delta Low Hematocrit 33.8 % (37.0-47.0) Low Mean Corpuscular Volume 75.8 fL (80.0-98.0) Low Mean Corpuscular Hemoglobin 24.0 pg (27.0-33.0) Low Mean Corpuscular Hemoglobin Concent 31.7 g/dl (31.0-35.0) Red Cell Distribution Width 16.7 % (11.0-16.0) High Platelet Count 206 X10*3/uL (160-400) Delta Mean Platelet Volume 10.8 fL (9.4-12.3) Nucleated RBC Absolute Count (auto) 0.000 X10*3/uL (0.0-0.012) Nucleated Red Blood Cells % (auto) 0.0 /100WBC (0.0-0.2) Sodium Level 141 mmol/L (135-145) Potassium Level 3.7 mmol/L (3.3-5.1) Chloride Level 111 mmol/L (96-108) High Carbon Dioxide Level 24 mmol/L (22-29) Anion Gap 10 (12-20) Low Blood Urea Nitrogen 9 mg/dL (9-16) Creatinine 0.77 mg/dL (0.5-1.4) Estimated Creatinine Clearance Calc Not Reportable Estimat Glomerular Filtration Rate > 60 Random Glucose 86 mg/dL (60-115) Calcium Level 9.4 mg/dL (8.4-10.2) Iron Level 95 mcg/dL (30-160) Total Iron Binding Capacity 330 mcg/dL (228-428) Percent Iron Saturation 29 % (15-50) Unsaturated Iron Binding 235 ug/dL Total Bilirubin 0.2 mg/dL (0.0-1.0) Aspartate Amino Transf (AST/SGOT) 25 U/L (5-31) Alanine Aminotransferase (ALT/SGPT) 19 U/L (0-31) Alkaline Phosphatase 80 U/L (39-117) Total Protein 6.7 g/dL (6.5-8.0) Albumin 4.3 g/dL (3.5-5.0) Triglycerides Level 131 mg/dL (<150) Cholesterol Level 217 mg/dL (<200) High LDL Cholesterol, Calculated 141 mg/dL (<100) High HDL Cholesterol 50 mg/dL (>40) Thyroid Stimulating Hormone (TSH) 0.71 uIU/mL (0.32-4.0) Coding Level of Care Code Tele Est Pt Level 5 (68535) Complex EM visit Add On G2211 Diagnoses Mixed hyperlipidemia E78.2 Hyperlipidemia type: mixed hyperlipidemia Obesity (BMI 30.0-34.9) E66.9 Thyromegaly E01.0 Uterine leiomyoma, unspecified location D25.9 Uterine leiomyoma location: unspecified location Abnormal uterine bleeding N93.9 Other iron deficiency anemia D50.8 Iron deficiency anemia type: other iron deficiency Cervicalgia M54.2 Pre-op exam Z01.818 Assessment & Plan Assessment & Plan (1) Hyperlipidemia: Code(s): E78.5 - Hyperlipidemia, unspecified Category: Medical Qualifiers: Hyperlipidemia type: mixed hyperlipidemia Qualified Code(s): E78.2 - Mixed hyperlipidemia (2) Obesity (BMI 30.0-34.9): Code(s): E66.9 - Obesity, unspecified Category: Medical (3) Thyromegaly: Comment: 10/2024 US Nodule #: 1 Location: Right isthmus measuring 7 x 2 x 4 mm Shape: Wider than tall (0 points) Margins: Smooth (0 points) Echotexture: Hyperechoic (1 point) Composition: Mixed (1 point) Calcifications: None (0 points) Total points: 2 TIRADS: TR2: Not suspicious Nodule #: 2 Location: Midportion of the left thyroid lobe measuring 5 x 3 x 4 mm Shape: Wider than tall (0 points) Margins: Smooth (0 points) Echotexture: Hyperechoic (1 point) Composition: Solid (2 points) Calcifications: None (0 points) Total points: 3 TIRADS: TR3: Mildly suspicious. Nodule #: 3 Location: Lower pole of the left thyroid lobe measuring 8 x 5 x 7 mm Shape: Wider than tall (0 points) Margins: Smooth (0 points) Echotexture: Hyperechoic (1 point) Composition: Mostly solid (2 points) Calcifications: Comet tail (0 points) Total points: 3 TIRADS: TR3: Mildly suspicious. Incidental note is made of multiple normal sized lymph nodes in the right neck at the area of pain. 02/2025 endo consult c At this point none of her nodules meet criteria for follow up and are very low risk appearing. She does not have any compressive symptoms. Normal thyroid function from January 2025. Her neck pain based on history appears very muscular in nature. She has normal- appearing lymph nodes in the neck. No areas of concerns. I have asked her to discuss with the primary care regarding neck pain evaluation. No need for further repeat imaging of her thyroid unless she has any clinical changes such as difficulty swallowing, changes in her voice or enlargement of nodules on exam. She does not need endocrinology follow up with me Code(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 Category: Medical (4) Uterine myoma: Code(s): D25.9 - Leiomyoma of uterus, unspecified Category: Medical Qualifiers: Uterine leiomyoma location: unspecified location Qualified Code(s): D25.9 - Leiomyoma of uterus, unspecified (5) Abnormal uterine bleeding: Comment: With anemia status post 1 unit of blood transfusion Code(s): N93.9 - Abnormal uterine and vaginal bleeding, unspecified Category: Medical (6) Iron deficiency anemia: Code(s): D50.9 - Iron deficiency anemia, unspecified Category: Medical Qualifiers: Iron deficiency anemia type: other iron deficiency Qualified Code(s): D50.8 - Other iron deficiency anemias (7) Cervicalgia: Code(s): M54.2 - Cervicalgia Category: Medical (8) Pre-op exam: Comment: PT IS MEDICALLY CLEARED FOR SURGERY Code(s): Z01.818 - Encounter for other preprocedural examination Category: Medical Plan . Orders: Orders ECG 12 lead EKG Today Z01.818 - Encounter for other preprocedural examination Referrals Electric Stove Installer Nutrition Referral E66.9 - Obesity, unspecified, E78.2 - Mixed hyperlipidemia Medications: New magnesium oxide 400 mg PO BEDTIME 90 tabs 2RF
--- OUTSIDE RECORDS SUMMARY | 2025-04-26 08:20 | XMS_ITS | Clinical Summary ---
Author Organization [facility] Address [address] [place] [address] Care Team Providers Care Terminal Operations Supervisor Name Role Phone LongEmiliana jett Primary Care Provider [phone] Allergies Active Allergy Reactions Criticality Noted Date Comments Atorvastatin Rash 04/22/2025 Medications Ferrocite 324 mg (106 mg iron) tablet SMARTSI Tablet(s) By Mouth Twice Daily 04/08/2025 Active medroxyPROGESTE Alberto (PROVERA) 10 mg tablet TAKE 1 TABLET BY MOUTH DAILY. START PROVERA 1 TABLET DAILY 04/08/2025 Active Encounters Date Type Department Care Team Description 04/24/2025 myChart Message [facility] [address] [place] [address] Before School Babysitter: Nneka Maguire MD FMNM 04/23/2025 myChart Message [facility] [address] [place] [address] Mychart, Generic Provider Questionnaire Submission 04/22/2025 3:30 PM EDT Office Visit [facility] [address] [place] [address] Before School Babysitter: Nneka Maguire MD Abnormal uterine bleeding (Primary Dx) 04/22/2025 Prep for Case [facility] [address] [place] [address] Before School Babysitter: Nneka Maguire MD Abnormal uterine bleeding (Primary Dx) from Last 3 Months Family History Medical History Relation Name Comments Breast cancer Mother Hypertension Mother Breast cancer Mother's Sister Relation Name Status Comments Mother Mother's Sister Social History Tobacco Use Types Packs/Day Years Used Date Smoking Tobacco: Never Assessed Comments No Sex and Gender Information Value Date Recorded Sex Assigned at Female 03/11/2025 12:02 PM EDT Legal Sex Female 11:59 AM EDT Gender Identity Female 04/15/2025 10:16 AM EDT Sexual Orientation Straight 04/15/2025 10 :16 AM EDT Last Filed Vital Signs Vital Sign Reading Time Taken Comments Blood Pressure 138/74 04/22/2025 2:23 PM EDT Pulse - - Temperature - - Respiratory Rate - - Oxygen Saturation - - Inhaled Oxygen Concentration - - Weight 98.9 kg (218 lb) 04/22/2025 2:23 PM EDT Height - - Body Mass Index - - Plan of Treatment Upcoming Encounters Date Type Department Care Team (Late st Contact Info) Description 05/27/2025 11:00 AM EDT Telehealth [facility] [address] [place] [phone] Before School Babysitter: Nneka Maguire MD [address] [place] [phone] 06/04/2025 2:45 PM EDT Pre-Admission Testing [facility] [address] [facility] [address] [place] [address] 06/11/2025 8:40 AM EDT Hospital Encounter [facility] [address] [place] [address] Nneka Salazar MD [address] [place] [phone] 06/11/2025 8:40 AM EDT - 06/11/2025 12:50 PM EDT Surgery [facility] [address] [place] [address] Nneka Salazar MD [address] [place] [phone] LAPAROSCOPIC TOTAL HYSTERECTOMY WITH REMOVAL OF TUBE(S) AND/OR OVARY(S) [19108 (CPT )] 07/22/2025 2:15 PM EST Office Visit [facility] [address] [place] [phone] Before School Babysitter: Nneka Maguire MD [address] [place] [phone] Scheduled Procedures Name Priority Associated Diagnoses Date/Ti me LAPAROSCOPIC TOTAL HYSTERECT DEISI WITH REMOVAL OF TUBE(S) AND/OR OVARY(S) Abnormal uterine bleeding 06/11/2025 8:40 AM EDT CYSTOURETHROSCOPY Abnormal uterine bleeding 06/11/2025 8:40 AM EDT Health Maintenance Due Date Last Done Comments Cervical Cancer Screening 1978 Cologuard 1978 Colon Cancer Screening 1978 Colonoscopy 1978 FOBT / Fit Test 1978 HIV Screening 1978 HPV and Pap Smear 1978 Hepatitis C Screening 1978 Pap Smear 1978 Sigmoidoscopy 1978 Hepatitis B Vaccines (1 of 3 - 19+ 3-dose series) 1997 Mammogram 2018 COVID-19 Vaccine ( - 2023-2 5 season) 2024 07/08/2021, 06/17/2021 Alcohol/Substance Use Screening 09/19/2024 Depression Screening and Follow-Up 09/19/2024 Social Drivers of Health Annual Screening 09/19/2024 Influenza Vaccine (#1) 2025 , 06/17/2021, 10/29/2020 DTaP,Tdap,and Td Vaccines (2 - Td or Tdap) 10/21/2033 10/21/2023 RSV Vaccine (60+ years old a nd patients) (1 - 1-dose 75+ series) 2053 Pneumococcal Vaccine: Pediatric (0-5 Years) and At-Risk Patients (6-50 Years) Aged Out No longer eligible based on patient's age to complete this topic Goals Goal Patient Goal Type Associated Problems Recent Progress Patient-Stated? Author Autogenera elida Goal Care Plan Autogenerated Problem No Aracely Perez Additional Health Concerns Active Problems Noted Date Diagnosed Date Autogenerated Problem 04/23/2025 Insurance [employer] Care Teams Terminal Operations Supervisor Relationship Specialty Start Date End Date Emiliana Long [employer] [place] [address] PCP - General 03/11/25
== END 2025-04-26 08:59 | disposition home or self-care (01) ==
LOC: HO.HMCFM 08:11
PROVIDERS: PCP Nurse Practitioner Family; Visit Provider Nurse Practitioner Family
DX: E78.2 Mixed hyperlipidemia (principal); E01.0 Iodine-deficiency related diffuse (endemic) goiter; D25.9 Leiomyoma of uterus, unspecified; N93.9 Abnormal uterine and vaginal bleeding, unspecified; E66.9 Obesity, unspecified; D50.8 Other iron deficiency anemias; M54.2 Cervicalgia; Z01.818 Encounter for other preprocedural examination